=== PATIENT | male | born 1955 | race Caucasian/White ===

== ENCOUNTER 2023-08-17 18:53 | Outpatient (CLI) | payer MEDICARE, OTHER, SELFPAY | END 2023-08-17 23:59 | PROVIDERS: PCP Nurse Practitioner Family; Visit Provider Nurse Practitioner Family | DX: J02.9 Acute pharyngitis, unspecified (principal) | CPT/HCPCS: 87070 ==

== ENCOUNTER 2023-08-21 19:44 | Outpatient (CLI) | payer MEDICARE, OTHER, SELFPAY ==
[2023-08-21 16:17] LABS: Chloride 107 mmol/L (98-107)
[2023-08-21 16:18] LABS: Basophils % 0.4 % (0.1-2.0); Eosinophils # 0.1 K/mm3 (0.0-0.4); Eosinophils % 1.2 % (0.1-12.0); Hematocrit 46.9 % (42.0-52.0); Hemoglobin 15.4 g/dL (14.1-18.0); Lymphocytes # 2.4 K/mm3 (0.7-4.5); Lymphocytes % 29.7 % (10-50); Mean Corpuscular HGB Conc 32.8 g/dL (31.8-35.4); Mean Corpuscular Hemoglobin 29.5 pg (27.0-31.2); Mean Corpuscular Volume 90.2 fl (80-94); Mean Platelet Volume 8.8 fl (7.4-10.4); Monocytes # 0.6 K/mm3 (0.1-1.0); Monocytes % 7.5 % (1.7-9.3); Neutrophils # 4.9 K/mm3 (1.8-7.8); Neutrophils % 61.2 % (37.0-80.0); Platelet Count 305 K/mm3 (142-424); Potassium 4.7 mmoL/L (3.5-5.1); Sodium 140 mmol/L (136-145)
[2023-08-21 16:20] LABS: Alanine Aminotransferase 33 U/L (12-78); Anion Gap 8.7 mEq/L (5-15); Aspartate Amino Transferase 38 U/L (17-59); Blood Urea Nitrogen 14 mg/dl (9-20); Carbon Dioxide 29 mmol/L (22.0-30.0); Estimated Glomerular Filt Rate 50 ml/min (>60); GFR (African American) 61 ML/MIN (>60)
[2023-08-21 16:21] LABS: Albumin Level 4.1 g/dl (3.5-5.0); Albumin/Globulin Ratio 1.3 (1.1-1.8); Alkaline Phosphatase 67 U/L (38-126); Bilirubin,Total 0.7 mg/dl (0.2-1.3); Calcium 9.8 mg/dl (8.4-10.2); Chol/HDL Ratio 4.9 (1-3.5); Cholesterol 137 mg/dl (140-200); Globulin 3.2 g/dL (1.3-3.2); Glucose 112 mg/dl (74-100); HDL Cholesterol 28 mg/dl (40-60); Total Protein,Serum 7.3 g/dl (6.3-8.2); Triglycerides 166 mg/dl (30-150); VLDL Cholesterol 33 mg/dL (0-40)
[2023-08-21 16:38] LABS: Direct LDL Cholesterol 78.42 mg/dL (100-129)
== END 2023-08-21 23:59 ==
PROVIDERS: PCP Family Medicine; Visit Provider Family Medicine
DX: E78.5 Hyperlipidemia, unspecified (principal); I10 Essential (primary) hypertension; Z79.899 Other long term (current) drug therapy
CPT/HCPCS: 80053; 80061; 85025

== ENCOUNTER 2023-11-20 16:03 | Outpatient (CLI) | payer MEDICARE, OTHER, SELFPAY ==
[2023-11-20 16:30] LABS: Anion Gap 17.4 mEq/L (5-15); Blood Urea Nitrogen 15 mg/dl (9-20); Calcium 10.1 mg/dl (8.4-10.2); Carbon Dioxide 24 mmol/L (22.0-30.0); Chloride 104 mmol/L (98-107); Estimated Glomerular Filt Rate 60 ml/min (>60); GFR (African American) 73 ML/MIN (>60); Glucose 122 mg/dl (74-100); Potassium 4.4 mmoL/L (3.5-5.1); Sodium 141 mmol/L (136-145)
== END 2023-11-20 23:59 | disposition home or self-care (01) ==
LOC: LAB.DROPOF 16:04
PROVIDERS: PCP Family Medicine; Visit Provider Family Medicine
DX: I10 Essential (primary) hypertension (principal); Z87.891 Personal history of nicotine dependence
CPT/HCPCS: 80048

== ENCOUNTER 2024-05-05 12:27 | Outpatient (CLI) | payer MEDICARE, OTHER, SELFPAY ==
[2024-05-05 16:49] LABS: Alanine Aminotransferase 20 U/L (12-78); Albumin Level 4.2 g/dl (3.5-5.0); Alkaline Phosphatase 52 U/L (38-126); Anion Gap 17.4 mEq/L (5-15); Aspartate Amino Transferase 38 U/L (17-59); Blood Urea Nitrogen 13 mg/dl (9-20); Calcium 9.7 mg/dl (8.4-10.2); Carbon Dioxide 18 mmol/L (22.0-30.0); Chloride 104 mmol/L (98-107); Chol/HDL Ratio 6.4 (1-3.5); Cholesterol 134 mg/dl (140-200); Estimated Glomerular Filt Rate 50 ml/min (>60); GFR (African American) 61 ML/MIN (>60); Globulin 4.3 g/dL (1.3-3.2); Glucose 106 mg/dl (74-100); HDL Cholesterol 21 mg/dl (40-60); Potassium 5.4 mmoL/L (3.5-5.1); Sodium 134 mmol/L (136-145); Total Protein,Serum 8.5 g/dl (6.3-8.2); Triglycerides 210 mg/dl (30-150); VLDL Cholesterol 42 mg/dL (0-40)
[2024-05-05 17:00] LABS: Direct LDL Cholesterol 79.06 mg/dL (100-129)
== END 2024-05-05 23:59 | disposition home or self-care (01) ==
LOC: LAB.DROPOF 05-06 12:27
PROVIDERS: PCP Family Medicine; Visit Provider Family Medicine
DX: E78.5 Hyperlipidemia, unspecified (principal); I10 Essential (primary) hypertension
CPT/HCPCS: 80053; 80061

== ENCOUNTER 2024-08-17 17:25 | Emergency (ER) | payer MEDICARE, OTHER, SELFPAY ==
[2024-08-17 17:28] VITALS: BP 148/99; PULSE 86; RESP 18; TEMP 36.5; O2SAT 96; BMI 37.9
--- NOTE | 2024-08-17 17:48 | ED_ITS ---
<Statement entered by Tyler Patterson MD - 08/17/24 23:16> I was consulted by the NICK, and we discussed the complexity of the problems being addressed. I approved the treatment and management plan for this patient's care in the emergency department, thus performing a substantive portion of the medical decision making. Tyler Patterson MD Discharge Plan Disposition Patient Disposition: Home, Self-Care Condition: Good Prescriptions Prescriptions: No Action aspirin 81 mg tablet,delayed release (DR/EC) 81 mg PO DAILY oxycodone-acetaminophen 5-325 mg tablet 1 tab PO Q6H PRN (Reason: Pain) Patient Comments: TAKE 1 TABLET BY MOUTH EVERY 6 HOURS NEEDED FOR PAIN cyclobenzaprine 10 mg tablet 10 mg PO Q8H PRN (Reason: Pain) Patient Comments: TAKE 1 TABLET BY MOUTH EVERY 8 HOURS NEEDED FOR MUSCLE SPASMS amlodipine 10 mg tablet 10 mg PO DAILY Qty: 90 3RF clopidogrel 75 mg tablet 75 mg PO DAILY Qty: 90 3RF simvastatin 40 mg tablet 40 mg PO DAILY 90 Days Qty: 90 0RF losartan 100 mg tablet 100 mg PO DAILY 90 Days Qty: 90 0RF metoprolol tartrate 100 mg tablet 100 mg PO BID 90 Days Qty: 180 0RF epinephrine [EpiPen 2-Leland] 0.3 mg/0.3 mL auto-injector 0.3 mg IM ONCE PRN (Reason: anaphylaxis) 90 Days Qty: 2 0RF Rx Instructions: do not exceed 3 doses per episode omeprazole 20 mg capsule,delayed release(DR/EC) See Rx Instructions .ROUTE .COMPLEX Qty: 90 3RF Dose Instruction: TAKE 1 CAPSULE DAILY Rx Instructions: TAKE 1 CAPSULE DAILY diclofenac sodium 50 mg tablet,delayed release (DR/EC) 50 mg PO BID 14 Days Qty: 28 0RF diclofenac sodium 1 % gel 2 g topical QID PRN (Reason: Arthritis) 90 Days Qty: 100 1RF fluticasone propionate 50 mcg/actuation spray,suspension 1 spray intranasal DAILY 90 Days Qty: 48 1RF fenofibrate 54 mg tablet 54 mg PO DAILY Qty: 90 0RF lidocaine 5 % adhesive patch,medicated 1 patch transdermal DAILY 90 Days Qty: 90 0RF tramadol 50 mg tablet 100 mg PO QID Qty: 360 1RF ceftriaxone [Rocephin] 2 gram Recon Soln 2 g IV Q24H vancomycin 1.5 gram Recon Soln 1.5 g IV Q24H Referrals Follow up/Referrals: Maycol Burkett MD [Primary Care Provider] - See instructions Activity Restrictions/Add. Instructions Additional Instructions/Restrictions: Please follow-up as scheduled. Return to the ED for worsening of condition Clinical Impressions Clinical Impression: Occluded PICC line Qualifiers: Encounter type: initial encounter Qualified Code(s): T82.898A - Other specified complication of vascular prosthetic devices, implants and grafts, initial encounter Instructions Patient Instructions: DI for Hip Pain Print Language Print Language: Albanian Discharge ED Provider: Tyler Patterson General Adult HPI General Chief complaint: Recheck/Abnormal Lab/Rx Stated complaint: Pic line not working Time Seen by Provider: 08/17/24 17:29 Mode of Arrival: Ambulatory Source of Information: Patient Limitations: No Limitations Description of Symptoms (Recalled from ER Triage Doc. by RN): Patient presents via wheelchair. 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 [facility] he is on 6-8 weeks of antibiotics. [facility] he has a PICC line that was placed in [facility]. [facility] the PICC line will not flush or draw. [facility] he went to [facility] this morning and they placed an IV in his left wrist, gave him his daily antibiotic dose, and then told him to call [facility]. [facility] they called [facility] who said the patient needed to call their primary. [facility] they called the primary care provider, who told them to come to the ED. History of Present Illness HPI narrative: 69-year-old male presents to the ED for complaints of a blocked PICC line. Patient receives IV antibiotics daily for a left hip infection. PICC line was placed at [facility]. Patient followed up with PCP who advised to come to the ED. Related Data Home Medications ?Medication ?Instructions ?Recorded ?Confirmed aspirin 81 mg tablet,delayed 81 mg PO DAILY 07/24/22 08/17/24 release cyclobenzaprine 10 mg tablet 10 mg PO Q8H PRN Pain 05/05/24 08/17/24 oxycodone-acetaminophen 5 mg-325 1 tab PO Q6H PRN Pain 05/05/24 08/17/24 mg tablet ceftriaxone 2 gram intravenous 2 g IV Q24H 08/17/24 08/17/24 solution vancomycin 1.5 gram intravenous 1.5 g IV Q24H 08/17/24 08/17/24 solution Previous Rx's ?Medication ?Instructions ?Recorded amlodipine 10 mg tablet 10 mg PO DAILY #90 tabs 01/19/23 clopidogrel 75 mg tablet 75 mg PO DAILY #90 tabs 01/19/23 losartan 100 mg tablet 100 mg PO DAILY 90 days #90 tabs 07/26/23 metoprolol tartrate 100 mg tablet 100 mg PO BID 90 days #180 tabs 07/26/23 simvastatin 40 mg tablet 40 mg PO DAILY 90 days #90 tabs 07/26/23 epinephrine 0.3 mg/0.3 mL 0.3 mg (0.3 mL) IM ONCE PRN 11/13/23 injection, auto-injector (EpiPen anaphylaxis 90 days #2 ea 2-Leland) omeprazole 20 mg capsule,delayed See Rx Instructions .Route 02/06/24 release .COMPLEX #90 caps diclofenac sodium 50 mg 50 mg PO BID 14 days #28 tabs 03/10/24 tablet,delayed release diclofenac sodium 1 % topical gel 2 g topical QID PRN Arthritis 90 04/09/24 days #100 grams fluticasone propionate 50 1 spray intranasal DAILY 90 days 04/09/24 mcg/actuation nasal #48 grams spray,suspension fenofibrate 54 mg tablet 54 mg PO DAILY #90 tabs 04/28/24 lidocaine 5 % topical patch 1 patch transdermal DAILY 90 days 06/09/24 #90 ea tramadol 50 mg tablet 100 mg (2 x 50 mg) PO QID #360 tabs 06/13/24 Allergies Allergy/AdvReac Type Severity Reaction Status Date / Time No Known Allergies Allergy Verified 05/22/24 10:57 [facility] Disclaimer: The information contained in this section may have been updated after the patient was seen, as this information can be updated by other users. Medical History ROYER (obstructive sleep apnea) Chronic pain Hyperlipidemia Coronary artery disease Hypertension Surgical History H/O heart artery stent History of hip replacement History of knee replacement, total Family History Father Coronary artery disease Mother Cancer Social History Smoking Status: Never smoker smoking status stop date: 07/02/1994 alcohol intake: current alcohol intake frequency: 0-2 drinks per day current occupational status: retired Travel in the last 8 weeks: None household members: none housing: house marital status: Have you lived/traveled outside [place] in past 30 days?: No Contact w/someone who lives/traveled outside US past 30 days?: No Exposure to someone with infectious disease in past 14 days?: No Do you have a fever (greater than 100.4 F or 38 C)?: No Have you tested positive for COVID-19: No Exposed to someone with COVID-19 in past 14 days?: No Do you have a sore throat?: No Do you have a cough?: No Do you have any weakness?: No Do you have any diarrhea?: No Are you experiencing any unusual bleeding?: No Do you have any muscle aches/pain?: No Do you have any abdominal pain?: No Are you experiencing loss of taste or smell?: No Other Medical History Have you received the Pneumonia Vaccine: Yes ROS Obtained: Yes Systems reviewed as appropriate & no additional complaints except as documented Physical Exam General General appearance: alert and in no apparent distress Head Head exam: atraumatic and normocephalic Eye Eye exam: Present normal appearance and PERRL ENT ENT exam: Present normal exam Neck Neck exam: Present normal inspection Chest Chest inspection: Present normal inspection and symmetric chest wall rise; Absent tenderness Respiratory Respiratory exam: Present normal lung sounds bilaterally Cardiovascular Cardiovascular exam: Present regular rate Abdominal Exam Abdominal exam: Present soft and normal bowel sounds; Absent tenderness Extremities Exam Extremities exam: Present normal inspection and full ROM Back Exam Back exam: Present normal inspection and full ROM Neurological Exam Neurological exam: Present alert and oriented X3 Psychiatric Psychiatric exam: Present normal affect and normal mood Skin Skin exam: Present warm and dry Medical Decision Making Medical Records Screening: Per USPSTF and CDC recommendations, given the prevalence of disease in our region, it is our hospital?s policy to screen for HIV and viral Hepatitis for all patients aged 18 and over and those with ongoing risk factors. Jake Inquiry Pt receiving controlled substance: No Jake was queried for this patient: No Vital Signs: 08/17/24 17:28 08/17/24 18:29 Temperature 97.7 F 98.1 F Temperature Source Oral Pulse Rate 81 Pulse Rate [Radial] 86 Respiratory Rate 18 18 Blood Pressure 137/87 Blood Pressure [R Arm] 148/99 H Blood Pressure Mean [R Arm] 115 Blood Pressure Source [R Arm] Automatic Cuff 02 Sat by Pulse Oximetry 96 Oxygen Delivery Method Room Air Medical Decision Narrative: In summary, patient is a 69 year old male PMHx CAD, HTN, HLD, ROYER who presents to the ED for issue with his PICC line. Patient is receiving IV antibiotics through his right-sided PICC line for an infection in his left hip. He states that he is having difficulty flushing the PICC line. He tried to follow-up with his PCP who advised him to come to the ED for further management. He denies any medical complaints. Upon initial exam, patient is alert, oriented and cooperative. Patient is hemodynamically stable. Physical exam unremarkable. Denies fever, chills, headache, visual disturbances, posterior neck pain, chest pain, shortness of breath, abdominal pain, nausea, vomiting. Differential diagnosis includes infection, PICC line malfunction, among others Initial inventions include changing the hub on the PICC line, heparin flush. Patient's PICC line now flushing without difficulty, it does not pull blood. Given this, patient is appropriate to be discharged at this time. He will follow-up with PCP tomorrow. Return to the ED for any worsening of condition peer Critical Care Critical Care Time Critical Care Time: No
--- NOTE | 2024-08-17 18:24 | PC.NURSE ---
I changed the cap on pts picc line. it now flushes. i had daughter who is @ bedside verify that it flushes as normal and educated on PICC line care.
[2024-08-17 18:29] VITALS: BP 137/87; PULSE 81; RESP 18; TEMP 36.7; O2SAT 99
== END 2024-08-17 18:30 | disposition home or self-care (01) ==
PROVIDERS: Emergency Provider Emergency Medicine; PCP Family Medicine
DX: T82.898A Other specified complication of vascular prosthetic devices, implants and grafts, initial encounter (principal)
CPT/HCPCS: 99282

== ENCOUNTER 2024-08-25 01:22 | Emergency (ER) | payer MEDICARE, OTHER, SELFPAY ==
--- NOTE | 2024-08-25 01:19 | CT_ITS ---
PROCEDURE INFORMATION: Exam: CT Cervical Spine Without Contrast Exam date and time: 08/25/2024 1:51 AM Age: 69 years old Clinical indication: Injury or trauma; Fall; Blunt trauma TECHNIQUE: Imaging protocol: Computed tomography of the cervical spine without contrast. Radiation optimization: All CT scans at this facility use at least one of these dose optimization techniques: automated exposure control; mA and/or kV adjustment per patient size (includes targeted exams where dose is matched to clinical indication); or iterative reconstruction. COMPARISON: CT CERVICAL SPINE WO CON 08/25/2024 1:51 AM FINDINGS: Bones: Posterior calcification at C2-C3 with moderate central canal stenosis. No acute fracture or subluxation. Uncovertebral and facet hypertrophy with severe right foraminal stenosis at C2-C3, severe left foraminal stenosis at C3-C4, moderate bilateral foraminal stenosis at C4-C5, severe bilateral foraminal stenosis at C5-C6 and C6-C7. Lungs: Lung apices are normal. Soft tissues: Unremarkable. IMPRESSION: No acute fracture or subluxation. Multilevel degenerative changes with associated central canal and foraminal stenosis, as described above.
--- NOTE | 2024-08-25 01:19 | CT_ITS ---
PROCEDURE INFORMATION: Exam: CT Head Without Contrast Exam date and time: 08/25/2024 1:49 AM Age: 69 years old Clinical indication: Injury or trauma; Fall; Blunt trauma (contusions or hematomas); Additional info: Fall on thinners TECHNIQUE: Imaging protocol: Computed tomography of the head without contrast. Radiation optimization: All CT scans at this facility use at least one of these dose optimization techniques: automated exposure control; mA and/or kV adjustment per patient size (includes targeted exams where dose is matched to clinical indication); or iterative reconstruction. COMPARISON: CT HEAD/BRAIN WO CON 08/25/2024 1:49 AM FINDINGS: Brain: Mild cerebral and cerebellar atrophy. No hemorrhage. Symmetric hypoattenuation in the periventricular white matter. No mass or mass effect. Cerebral ventricles: Stable moderate ventriculomegaly. Paranasal sinuses: Visualized sinuses are unremarkable. No fluid levels. Mastoid air cells: Visualized mastoid air cells are well aerated. Bones: Unremarkable. No acute fracture. Soft tissues: Unremarkable. IMPRESSION: 1. No acute intracranial abnormality. 2. Age-related cortical atrophy. 3. Hypoattenuation in the periventricular white matter, suspicious for small vessel ischemic disease.
--- NOTE | 2024-08-25 01:19 | CT_ITS ---
PROCEDURE INFORMATION: Exam: CT Pelvis Without Contrast, Skeleton Exam date and time: 08/25/2024 1:56 AM Age: 69 years old Clinical indication: Injury or trauma; Fall; Blunt trauma (contusions or hematomas); Prior surgery; Surgery date: <1 month; Surgery type: Orif left hip; Additional info: Fall L hip pain, recent operations TECHNIQUE: Imaging protocol: Computed tomography of the pelvis without contrast. Exam focused on the skeleton. Radiation optimization: All CT scans at this facility use at least one of these dose optimization techniques: automated exposure control; mA and/or kV adjustment per patient size (includes targeted exams where dose is matched to clinical indication); or iterative reconstruction. COMPARISON: No relevant prior studies available. FINDINGS: Bones/joints: Mildly comminuted periprosthetic left femoral diaphysis fracture with anterolateral apex angulation. The distal femoral fragment appears hooked within the 2nd inferior most cerclage wire (series 1001, image 41). Bilateral total hip arthroplasties. The bilateral femoroacetabular joints are intact. Soft tissues: Large mixed density left posterolateral thigh soft tissue hematoma measuring approximately 7 x 12 x 26 cm (AP, transverse, cc) (series 4, images 17-120; series 1003, images 64-123). There are multiple fracture fragments in the inferior most aspect of the hematoma. IMPRESSION: 1. Mildly comminuted periprosthetic left femoral diaphysis fracture with anterolateral apex angulation. The distal femoral fragment appears hooked within the 2nd inferior most cerclage wire (series 1001, image 41). 2. Large mixed density left posterolateral thigh soft tissue hematoma. There are multiple fracture fragments in the inferior most aspect of the hematoma.
[2024-08-25 01:22] VITALS: BP 139/91; PULSE 76; RESP 18; TEMP 36.5; O2SAT 99; BMI 37.9
[2024-08-25 01:30] VITALS: BP 140/83; PULSE 74; O2SAT 98
--- NOTE | 2024-08-25 01:31 | XR_ITS ---
PROCEDURE INFORMATION: Exam: XR Chest Exam date and time: 08/25/2024 2:06 AM Age: 69 years old Clinical indication: Injury or trauma; Fall; Blunt trauma (contusions or hematomas); Additional info: Picc check TECHNIQUE: Imaging protocol: Radiologic exam of the chest. Views: 1 view. COMPARISON: CT CERVICAL SPINE WO CON 08/25/2024 1:51 AM FINDINGS: Tubes, catheters and devices: Right upper extremity PICC with the tip projecting over the superior vena cava. Lungs: Unremarkable. No consolidation. Pleural spaces: Unremarkable. No pleural effusion. No pneumothorax. Heart/Mediastinum: Unremarkable. No cardiomegaly. Bones/joints: No definite acute displaced fracture. IMPRESSION: 1. No definite acute displaced fracture. 2. Right upper extremity PICC in appropriate position.
[2024-08-25 01:37] LABS: Basophils # 0.1 K/mm3 (0-0.2); Basophils % 1.4 % (0.1-2.0); Eosinophils # 0.2 K/mm3 (0.0-0.4); Eosinophils % 2.4 % (0.1-12.0); Hematocrit 30.5 % (42.0-52.0); Hemoglobin 9.6 g/dL (14.1-18.0); Lymphocytes # 1.9 K/mm3 (0.7-4.5); Lymphocytes % 27.6 % (10-50); Mean Corpuscular HGB Conc 31.5 g/dL (31.8-35.4); Mean Corpuscular Volume 85.9 fl (80-94); Mean Platelet Volume 9.4 fl (7.4-10.4); Monocytes # 0.8 K/mm3 (0.1-1.0); Monocytes % 10.7 % (1.7-9.3); Neutrophils % 57.5 % (37.0-80.0); Platelet Count 388 K/mm3 (142-424); Red Blood Count 3.55 M/mm3 (4.60-6.20); Red Cell Distribution Width 16.5 % (11.5-17.5)
--- NOTE | 2024-08-25 01:37 | HMH.EDGENADL ---
Discharge Plan Disposition Patient Disposition: Xfer Short-Term Hosp Chief Complaint: Fall Prescriptions Prescriptions: No Action aspirin 81 mg tablet,delayed release (DR/EC) 81 mg PO DAILY oxycodone-acetaminophen 5-325 mg tablet 1 tab PO Q6H PRN (Reason: Pain) Patient Comments: TAKE 1 TABLET BY MOUTH EVERY 6 HOURS NEEDED FOR PAIN cyclobenzaprine 10 mg tablet 10 mg PO Q8H PRN (Reason: Pain) Patient Comments: TAKE 1 TABLET BY MOUTH EVERY 8 HOURS NEEDED FOR MUSCLE SPASMS amlodipine 10 mg tablet 10 mg PO DAILY Qty: 90 3RF clopidogrel 75 mg tablet 75 mg PO DAILY Qty: 90 3RF simvastatin 40 mg tablet 40 mg PO DAILY 90 Days Qty: 90 0RF losartan 100 mg tablet 100 mg PO DAILY 90 Days Qty: 90 0RF metoprolol tartrate 100 mg tablet 100 mg PO BID 90 Days Qty: 180 0RF epinephrine [EpiPen 2-Leland] 0.3 mg/0.3 mL auto-injector 0.3 mg IM ONCE PRN (Reason: anaphylaxis) 90 Days Qty: 2 0RF Rx Instructions: do not exceed 3 doses per episode omeprazole 20 mg capsule,delayed release(DR/EC) See Rx Instructions .ROUTE .COMPLEX Qty: 90 3RF Dose Instruction: TAKE 1 CAPSULE DAILY Rx Instructions: TAKE 1 CAPSULE DAILY diclofenac sodium 50 mg tablet,delayed release (DR/EC) 50 mg PO BID 14 Days Qty: 28 0RF diclofenac sodium 1 % gel 2 g topical QID PRN (Reason: Arthritis) 90 Days Qty: 100 1RF fluticasone propionate 50 mcg/actuation spray,suspension 1 spray intranasal DAILY 90 Days Qty: 48 1RF fenofibrate 54 mg tablet 54 mg PO DAILY Qty: 90 0RF lidocaine 5 % adhesive patch,medicated 1 patch transdermal DAILY 90 Days Qty: 90 0RF tramadol 50 mg tablet 100 mg PO QID Qty: 360 1RF ceftriaxone [Rocephin] 2 gram Recon Soln 2 g IV Q24H vancomycin 1.5 gram Recon Soln 1.5 g IV Q24H Referrals Follow up/Referrals: Maycol Burkett MD [Primary Care Provider] - See instructions Clinical Impressions Clinical Impression: Periprosthetic fracture around internal prosthetic left hip joint, initial encounter Stand Alone Forms Stand Alone Forms: Transfer Record - ED Print Language Print Language: Serbian Discharge ED Provider: Jake Oleary General Adult HPI General Chief complaint: Fall Stated complaint: Left hip pain Time Seen by Provider: 08/25/24 01:22 Mode of Arrival: EMS Source of Information: Patient and EMS Limitations: Physical Limitations Description of Symptoms (Recalled from ER Triage Doc. by RN): Patient reports a fall from standint. States he is now having left hip pain. States he had the left hip replaced one year ago, but the hip became infected and was removed and a spacer was put into the area. Took an oxycodone at home for the pain History of Present Illness HPI narrative: 69-year-old male presents via EMS for concerns of left hip pain after fall from standing. He states he lost his balance attempting to use his walker. Patient had left hip replacement 1 year ago but ended up with infection and since then has had multiple procedures including a surgery within the last month at [facility] with Dr. Dos Santos. Patient reports pain in the left hip since the fall. EMS also reports the left hip has started to bleed at the incision. Patient took an Oxy at home prior to arrival. He is not sure if he struck his head denies loss of consciousness. He denies neck pain, back pain, chest pain, belly pain, or other associated pain or complaints. No numbness, tingling, or weakness. He does take blood thinners. Review of systems otherwise negative. Related Data Home Medications ?Medication ?Instructions ?Recorded ?Confirmed aspirin 81 mg tablet,delayed 81 mg PO DAILY 07/24/22 08/17/24 release cyclobenzaprine 10 mg tablet 10 mg PO Q8H PRN Pain 05/05/24 08/17/24 oxycodone-acetaminophen 5 mg-325 1 tab PO Q6H PRN Pain 05/05/24 08/17/24 mg tablet ceftriaxone 2 gram intravenous 2 g IV Q24H 08/17/24 08/17/24 solution vancomycin 1.5 gram intravenous 1.5 g IV Q24H 08/17/24 08/17/24 solution Previous Rx's ?Medication ?Instructions ?Recorded amlodipine 10 mg tablet 10 mg PO DAILY #90 tabs 01/19/23 clopidogrel 75 mg tablet 75 mg PO DAILY #90 tabs 01/19/23 losartan 100 mg tablet 100 mg PO DAILY 90 days #90 tabs 07/26/23 metoprolol tartrate 100 mg tablet 100 mg PO BID 90 days #180 tabs 07/26/23 simvastatin 40 mg tablet 40 mg PO DAILY 90 days #90 tabs 07/26/23 epinephrine 0.3 mg/0.3 mL 0.3 mg (0.3 mL) IM ONCE PRN 11/13/23 injection, auto-injector (EpiPen anaphylaxis 90 days #2 ea 2-Leland) omeprazole 20 mg capsule,delayed See Rx Instructions .Route 02/06/24 release .COMPLEX #90 caps diclofenac sodium 50 mg 50 mg PO BID 14 days #28 tabs 03/10/24 tablet,delayed release diclofenac sodium 1 % topical gel 2 g topical QID PRN Arthritis 90 04/09/24 days #100 grams fluticasone propionate 50 1 spray intranasal DAILY 90 days 04/09/24 mcg/actuation nasal #48 grams spray,suspension fenofibrate 54 mg tablet 54 mg PO DAILY #90 tabs 04/28/24 lidocaine 5 % topical patch 1 patch transdermal DAILY 90 days 06/09/24 #90 ea tramadol 50 mg tablet 100 mg (2 x 50 mg) PO QID #360 tabs 06/13/24 Allergies Allergy/AdvReac Type Severity Reaction Status Date / Time No Known Allergies Allergy Verified 05/22/24 10:57 [facility] Disclaimer: The information contained in this section may have been updated after the patient was seen, as this information can be updated by other users. Medical History ROYER (obstructive sleep apnea) Chronic pain Hyperlipidemia Coronary artery disease Hypertension Surgical History H/O heart artery stent History of hip replacement History of knee replacement, total Family History Father Coronary artery disease Mother Cancer Social History Smoking Status: Never smoker smoking status stop date: 07/02/1994 alcohol intake: current alcohol intake frequency: 0-2 drinks per day current occupational status: retired Travel in the last 8 weeks: None household members: none housing: house marital status: Have you lived/traveled outside US in past 30 days?: No Contact w/someone who lives/traveled outside US past 30 days?: No Exposure to someone with infectious disease in past 14 days?: No Do you have a fever (greater than 100.4 F or 38 C)?: No Have you tested positive for COVID-19: No Exposed to someone with COVID-19 in past 14 days?: No Do you have a sore throat?: No Do you have a cough?: No Do you have any weakness?: No Do you have any diarrhea?: No Are you experiencing any unusual bleeding?: No Do you have any muscle aches/pain?: Yes Do you have any abdominal pain?: No Are you experiencing loss of taste or smell?: No Other Medical History Have you received the Pneumonia Vaccine: Yes ROS Obtained: Yes Systems reviewed as appropriate & no additional complaints except as documented per HPI Physical Exam General General appearance: alert, in no apparent distress and obese Head Head exam: atraumatic and normocephalic Eye Eye exam: Present PERRL and EOMI ENT ENT exam: Present mucous membranes moist Neck Neck exam: Present normal inspection and full ROM Chest Chest inspection: Present symmetric chest wall rise; Absent tenderness Respiratory Respiratory exam: Present normal lung sounds bilaterally; Absent respiratory distress, wheezes or stridor Cardiovascular Cardiovascular exam: Present regular rate and normal rhythm Abdominal Exam Abdominal exam: Present soft; Absent distention or tenderness Extremities Exam Extremities exam: Present tenderness (Tenderness to palpation of the left hip, overlying incision appears clean, there is a very small area in the middle of the incision that is oozing serosanguineous fluid, no obvious dehiscence, no evidence of infection), normal capillary refill and other (Palpable DP and PT pulses, neurovascularly intact; no obvious deformity); Absent full ROM (Significantly limited range of motion of the left hip both passive and active), edema, joint swelling or calf tenderness Neurological Exam Neurological exam: Present alert and oriented X3; Absent motor sensory deficit Psychiatric Psychiatric exam: Present normal affect and normal mood Skin Skin exam: Present warm and dry Medical Decision Making Medical Records Medical records reviewed: Yes I reviewed the patient's medical records. Screening: Per USPSTF and CDC recommendations, given the prevalence of disease in our region, it is our hospital?s policy to screen for HIV and viral Hepatitis for all patients aged 18 and over and those with ongoing risk factors. MR Comment: On 08/17/2024 patient was in our ER for an occluded PICC line and they had to replace the hub and then the line would appropriately flush. He has since been receiving IV antibiotics. He was seen in May 2020 for by his PCP Dr. Burkett with chronic pain of the left hip since his surgery. Jake Inquiry Pt receiving controlled substance: No Vital Signs: 08/25/24 01:22 08/25/24 01:30 08/25/24 02:04 Temperature 97.7 F Temperature Source Oral Pulse Rate 74 75 Pulse Rate [Right Radial] 76 Respiratory Rate 18 Blood Pressure 140/83 152/65 H Blood Pressure [Right Arm] 139/91 H Blood Pressure Mean [Right Arm] 107 Blood Pressure Source [Right Arm] Automatic Cuff Blood Pressure Position [Right Arm] Supine 02 Sat by Pulse Oximetry 99 98 96 Oxygen Delivery Method Room Air Lab Data Lab Results 08/25/24 01:30: WBC 7.0, RBC 3.55 L, Hgb 9.6 L, Hct 30.5 L, MCV 85.9, MCH 27.0, MCHC 31.5 L, RDW 16.5, Plt Count 388, MPV 9.4, Neut % (Auto) 57.5, Lymph % (Auto) 27.6, Guthrie % (Auto) 10.7 H, Eos % (Auto) 2.4, Baso % (Auto) 1.4, Neut # (Auto) 4.0, Lymph # (Auto) 1.9, Guthrie # (Auto) 0.8, Eos # (Auto) 0.2, Baso # (Auto) 0.1, Sodium 135 L, Potassium 4.5, Chloride 107, Carbon Dioxide 22, Anion Gap 10.5, BUN 17, Creatinine 1.30 H, Estimated Creat Clear 80, Estimated GFR 55 L, Est GFR ( Amer) 66, Glucose 107 H, Calcium 9.1, Total Bilirubin 0.4, AST 35, ALT 21, Alkaline Phosphatase 54, C-Reactive Protein 9.1 H, Total Protein 6.8, Albumin 3.8, Globulin 3.0, Albumin/Globulin Ratio 1.3 08/25/24 01:30 08/25/24 01:30 Orders (Tests/Meds): ED MEDICATIONS Discontinued Medications Generic Name Dose Route Start Last Admin Trade Name Freq PRN Reason Stop Dose Admin Morphine Sulfate 4 mg 08/25/24 01:32 08/25/24 02:24 Morphine 4mg/Ml Syringe IV 08/25/24 01:33 4 mg ONCE ONE Administration Ondansetron HCl 4 mg 08/25/24 01:32 08/25/24 02:24 Ondansetron 4mg/2ml Vial IV 08/25/24 01:33 4 mg ONCE ONE Administration ORDERS Category Date Time Status CT bony pelvis Stat Cat Scan 08/25/24 01:[address] cervical spine wo con Stat Cat Scan 08/25/24 01:[address] head/brain wo con Stat Cat Scan 08/25/24 01:19 Completed CXR --portable [XR chest portable] Stat Exams 08/25/24 01:31 Completed CBC w/Auto Diff [Complete Blood Count Auto Diff] Stat Lab 08/25/24 01:30 Results CMP [Comprehensive Metabolic Panel] Stat Lab 08/25/24 01:30 Completed CRP [C-Reactive Protein] Stat Lab 08/25/24 01:30 Completed ESR [Erythrocyte Sedimentation Rate] Stat Lab 08/25/24 01:30 Results Medical Decision Narrative: In summary, this 69-year-old male with comorbidities as described in the HPI including complications since left hip replacement not at goal therapy presents to the emergency department today with left hip pain after ground level fall. On initial evaluation patient is hemodynamically stable, afebrile, GCS 15, no tenderness to palpation of the chest, abdomen, spine, patient does have tenderness of the left hip with shortening of the left lower extremity, small serosanguineous drainage from the left hip incision which otherwise appears intact and no evidence of infection. Neurovascularly intact. Differential diagnosis includes but is not limited to periprosthetic fracture, dislocation, hematoma, since he is on thinners also considered possibility of intracranial bleed, with his age also cannot rule out C-spine injury. Based on these concerns, I ordered CT imaging, basic labs, x-rays. Also ordered x-ray of the chest to assess PICC placement Patient received morphine, Zofran for treatment. Labs personally reviewed demonstrate no leukocytosis, patient has anemia with hemoglobin 9.6, platelets normal, CMP with kidney function at baseline compared to previous labs which I reviewed, CRP slightly elevated at 9.1. CT imaging was performed first. This included CT of the head, C-spine, bony pelvis. I personally interpreted all CT imaging and do not appreciate acute intracranial or cervical spine injury, however patient does have periprosthetic left hip fracture with significant angulation. Due to significant pain with manipulation, plain films are not going to be performed at this time of the left hip. Chest x-ray personally interpreted demonstrates PICC line in the SVC, no acute intrathoracic injury appreciated. See radiology reads for final interpretations. Based on my personal interpretation of the CT imaging, immediately reach out to [facility] for transfer for periprosthetic left hip fracture since Dr. Dos Santos works at their facility. I spoke with Dr. Jett with Ortho who agrees the patient should be transferred to [place] for further evaluation and management. I then spoke with nurse practitioner Damaris with the hospitalist team who accepted the patient for admission. Patient appropriate for transfer. His pain is controlled. He continues to be neurovascularly intact. He was transferred via ambulance in stable condition. Critical Care Critical Care Time Critical Care Time: No
--- NOTE | 2024-08-25 01:42 | PC.NURSE ---
Pt to CT scan via stretcher
[2024-08-25 01:51] LABS: Alanine Aminotransferase 21 U/L (12-78); Albumin Level 3.8 g/dl (3.5-5.0); Albumin/Globulin Ratio 1.3 (1.1-1.8); Alkaline Phosphatase 54 U/L (38-126); Aspartate Amino Transferase 35 U/L (17-59); Bilirubin,Total 0.4 mg/dl (0.2-1.3); Blood Urea Nitrogen 17 mg/dl (9-20); Calcium 9.1 mg/dl (8.4-10.2); Carbon Dioxide 22 mmol/L (22.0-30.0); Chloride 107 mmol/L (98-107); Creatinine Clearance Estimated 80 mL/min (50-200); Estimated Glomerular Filt Rate 55 ml/min (>60); GFR (African American) 66 ML/MIN (>60); Glucose 107 mg/dl (74-100); Sodium 135 mmol/L (136-145); Total Protein,Serum 6.8 g/dl (6.3-8.2)
[2024-08-25 01:56] LABS: C-Reactive Protein 9.1 mg/L (0-4)
[2024-08-25 02:02] LABS: Anion Gap 10.5 mEq/L (5-15); Potassium 4.5 mmoL/L (3.5-5.1)
[2024-08-25 02:04] VITALS: BP 152/65; PULSE 75; O2SAT 96
--- NOTE | 2024-08-25 02:10 | PC.NURSE ---
Called [facility] for a transfer to [place]
[2024-08-25] MEDS: MORPHINE 4MG/ML SYRINGE 4 MG IV (02:24)
[2024-08-25] MEDS: ONDANSETRON 4MG/2ML VIAL 4 MG IV (02:24)
--- NOTE | 2024-08-25 02:29 | PC.NURSE ---
Rounding done on patient
[2024-08-25 02:47] LABS: Erythrocyte Sedimentation Rate 83 mm/hr (0-20)
--- NOTE | 2024-08-25 02:53 | PC.NURSE ---
Report given to Rosy at [facility]. Patient is going to ICU room 5 as a med/surg overflow.
[2024-08-25 03:07] VITALS: BP 140/79; PULSE 72; RESP 16; TEMP 36.5; O2SAT 96
== END 2024-08-25 03:08 | disposition short-term general hospital (02) ==
PROVIDERS: Emergency Provider Emergency Medicine; PCP Family Medicine
DX: M25.552 Pain in left hip (principal); M97.02XA Periprosthetic fracture around internal prosthetic left hip joint, initial encounter; W01.0XXA Fall on same level from slipping, tripping and stumbling without subsequent striking against object, initial encounter; Y93.89 Activity, other specified
CPT/HCPCS: 70450; 71045; 72125; 72192; 80053; 85025; 85651; 86140; 96374; 96375; 99285; J2270; J2405

== ENCOUNTER 2025-02-25 13:26 | Outpatient (CLI) | payer MEDICARE, OTHER, SELFPAY ==
--- OUTSIDE RECORDS SUMMARY | 2025-02-25 13:28 | XMS_ITS | Continuity of Care Document ---
Author Name [facility] Organization [facility] Care Team Providers Care Credit Resolution Representative Name Role Phone [facility] Unavailable Unavailable Problems Combined list of problems from [facility] and [facility] facilities. It does not include entries that were removed or entered in error. Problem Status Onset Date Problem Type Date of Resolution Comments Source Benign hypertension Active Condition [facility] Chronic osteoarthritis Active Condition [facility] Gastroesophageal reflux disease Active Condition [facility] Hip pain Active Condition [facility] History of noncompliance with medication regimen Active Condition Jul 27 018 Entered By: RIYA FRANCO Comment: Multisource tramadol [facility] Ischemic heart disease Active Condition [facility] Obstructive sleep apnea syndrome Active Condition [facility] Diagnosis: ICD-10-CM H25.813 Combined forms of age-related cataract, bilateral Active Diagnosis [facility] Diagnosis: ICD-10-CM H52.4 Presbyopia Active Diagnosis [facility] Medications Combined list of outpatient medications from [facility] and [facility] facilities.Medications provided include 1) outpatient medications from the last 15 months, and 2) patient-reported medications. Medication Details Route Status Patient Instructions Prescription Expires Prescription Number Last Dispense Date Ordering Provider Order Date Order Qty Source ASPIRIN 81MG TAB,EC TAKE ONE TABLET BY MOUTH DAILY ORAL ACTIVE WILBUR LIND 2017 [place] [facility] CARBOXYMETH YLCELLULOSE NA 1% GEL,OPH 0.4ML APPLY 1 DROP TO BOTH EYES NEEDED FOR DRY EYES OPHTHA LMIC ACTIVE 09/28/2024 [id number] Curt OKEEFE M 2023 60 [place] [facility] CETIRIZINE HCL 10MG TAB TAKE ONE TABLET BY MOUTH DAILY ORAL ACTIVE WILBUR LIND 2017 [place] [facility] CLOPIDOGREL BISULFATE 75MG TAB TAKE ONE TABLET BY MOUTH DAILY ORAL ACTIVE WILBUR LIND 2017 [place] [facility] CYANOCOBALA MIN 1000MCG TAB TAKE ONE TABLET BY MOUTH DAILY ORAL ACTIVE WILBUR LIND 2017 [place] [facility] EPI-PEN 0.3MG/0.3ML INJECTOR INJECT EPI-PEN (0.3MG/1 SYRINGE) DOSE INTO THE MUSCLE DIRECTED ONCE PRN INTRAM USCULA R ACTIVE WILBUR LIND 2017 [place] [facility] HYDROCHLORO THIAZIDE 25MG TAB TAKE ONE-HALF TABLET BY MOUTH DAILY ORAL ACTIVE WILBUR LIND 2017 [place] [facility] LISINOPRIL 40MG TAB TAKE ONE-HALF TABLET BY MOUTH DAILY ORAL WILBUR AYOUB 2017 [place] [facility] METOPROLOL SUCCINATE 50MG TAB,SA TAKE ONE-HALF TABLET BY MOUTH DAILY ORAL WILBUR AYOUB 2017 [place] [facility] NIACIN (SLO-NIACIN ) 750MG TAB,SA TAKE TWO TABLETS BY MOUTH AT BEDTIME WILBUR LIAO 2017 [place] [facility] OMEPRAZOLE 20MG CAP,EC TAKE 1 CAPSULE BY MOUTH EVERY DAY 30 MINUTES BEFORE A MEAL WILBUR LIAO 2017 [place] [facility] POLYVINYL ALCOHOL 1.4%/POVIDO NE (PF) SOLN,OPH PUT 1 DROP IN EYE(S) FOUR TIMES A DAY FOR DRY EYES OPHTHA LMIC 11/02/2023 [id number] 4 [facility] DOVE 2022 50 [place] [facility] PREDNISOLON E ACETATE (PREDNISOLO NE ACETATE), 1%, DROPS SUSP, OPHTHALMIC, [facility], 5 ml DROP BTL Canjose me d [id number] : 06/13/ 2024 0 Pharmac y Data Transac tion Service Facilit y SIMVASTATIN 80MG TAB TAKE ONE-HALF TABLET BY MOUTH AT BEDTIME ORAL ACTIVE WILBUR LIND 2017 [place] [facility] TRAMADOL HCL 50MG TAB TAKE TWO TABLETS BY MOUTH DAILY ORAL ACTIVE WILBUR LIND 2017 [place] [facility] Immunizations Combined list of available immunizations from the Department of Defense and Veterans Affairs facilities. Immunization Series Date Given Administered By Site Reaction Lot Number CVX Code Drug Service Center Representative Status Comments Source INFLUENZA, INJECTABLE, QUADRIVALENT, PRESERVATIVE FREE 2020 150 complet ed [place] COVID-19 (PFIZER), MRNA, LNP-S, PF, 30 MCG/0.3 ML DOSE 3 2020 208 complet ed PFR; [id number]; 2 [place] [facility] COVID-19 (PFIZER), MRNA, LNP-S, PF, 30 MCG/0.3 ML DOSE 2 2020 208 complet ed PFR; [id number]; 1 [place] COVID-19 (PFIZER), MRNA, LNP-S, PF, 30 MCG/0.3 ML DOSE 1 2020 208 complet ed PFR; [id number]; 1 [place] Hep A, adult 2018 TY, () Not Given Hep A, adult [facility] Hep A, adult 2017 TY, () Not Given Hep A, adult DoD INFLUENZA A & B (HISTORICAL) 2016 88 complet ed [place] [facility] INFLUENZA A & B (HISTORICAL) 2015 88 complet ed [place] [facility] ZOSTER LIVE 2015 121 complet ed verbal report [place] [facility] zoster live 2015 PEPE, () Not Given zoster live [facility] TDAP (HISTORICAL) 2015 115 complet ed [place] [facility] INFLUENZA A & B (HISTORICAL) 2014 88 complet ed [place] [facility] Influenza, seasonal, injectable 2013 FAN AGUIAR () Not Given Influenza , seasonal, injectabl e DoD PNEUMOCOCCAL POLYSACCHARID E [id number] 2013 33 complet ed verbal report [place] [facility] Encounters Combined list of: 1) Encounters from Department of Veterans Affairs facilities going backup to the last 18 months, not all [place] inpatient encounters are included; 2) Encounters from the Department of [facility] facilities going backup to 280 months. Location Location Details Encounter Type Encounter Number Reason For Visit Attending Provider ADM Date DC Date Status Disposition Source [facility] INTRM OPH EXAM EST PATIENT [id number] Diagnos is: ICD-10- CM H52.4 NEO [place] [facility] INTRM OPH EXAM EST PATIENT [id number] Diagnos is: ICD-10- CM H25.813 Combine d forms of age-rel ated catarac t, bilater al FELIPE CASSIDY L 09/27 [place] [facility] Outpatient Encounter [id number] 07/07 [place] [facility] Outpatient Encounter [id number] 07/07 [place] [facility] Outpatient Encounter [id number] 07/16 [place] [facility] Outpatient Encounter [id number] 07/16 [place] [facility] Social History Combined list of available smoking, tobacco, and other social history from Department of Defense and Veterans Affairs facilities. Social History Type Response Date Comment Sourc e Tobacco smoking status NHIS V9 QUIT TOBACCO >7 YEARS AGO 12/06/2017 [facility] History of tobacco use V9 QUIT TOBACCO >12 MO and <7 YRS AGO 02/23/2016 [facility] This section is an empty social history section. [employer]
--- OUTSIDE RECORDS SUMMARY | 2025-02-25 13:29 | XMS_ITS | Encounter Summary ---
Author Organization [employer] ([place], [place], [place], [place]) Address [address] [place] [address] Care Team Providers Care Literacy Specialist Name Role Phone [facility] Find-A-Doc Primary Care Provider Encounter Details Date Type Department Care Team (Late st Contact Info) Description 11/07/2018 Transcribed Document [facility] Family Medicine [address] [place] [address] ProviderNicolette MD [address], [place] [id number] Social History Tobacco Use Types Packs/Day Years Used Date Smoking Tobacco: Never Assessed Sex and Gender Information Value Date Recorded Sex Assigned at Male 11/29/2023 7:55 AM CDT Legal Sex Male 6:33 PM CDT Gender Identity Male 11/29/2023 7:55 AM CDT Sexual Orientation Not on file documented as of this encounter Miscellaneous Notes * Cerner Conversion Note - Nicolette Venegas MD - 11/07/2018 8:32 PM CDT [facility] [place] [id number] AWA CLAROS BAUTISTA :1955 Visit Time:11/07/2018 Your Visit Summary Your Care Team Admitting Physician - GUERDA JOHNSON MD-CAR Attending Physician - GUERDA JOHNSON MD-CAR Primary Care Physician - DEIRDRE CANTU (REF), -MED Referring Physician - DEIRDRE CANTU (REF), -MED Your Diagnosis Abnormal result of other cardiovascular function study, Abnormal result of other cardiovascular function study Discharge Vitals Heart Rate (Monitored) 96 Blood Pressure 142/82 What to do next Instructions From Your Care Team Diet after Discharge: Resume usual diet as tolerated, _, _ Fluid Restriction after Discharge: _ Activity after Discharge: _, Rest and relax today, No strenuous activity for 7 days. Lifting Restrictions: _ Weight Bearing: _ Bedrest: _ Driving after Discharge: Do not drive for 24 hours May Return to Work/School: Showering/Bathing: May shower tomorrow, No tub bathing, soaking or swimming Notify Provider of: Wound/Incision Care after Discharge: Keep operative site/wound site clean and dry, _ Medical Equipment for Home Use: Home Health Services: Community Services: follow post radial cath instructions. Follow-Up Appointments Follow Up with MARION WASHBURN MD-INT When Within 2 to 4 weeks Comments Call for follow up appointment Where: [address] [place] [address] [place] [address]- Medications What How Much When Instructions Next Dose amLODIPine 5 Milligram(s) Oral Every Day increase to 10mg a day 11/08 aspirin 81 Milligram(s) Oral At Bedtime 11/07 clopidogrel (Plavix) 75 Milligram(s) Oral Every Day 11/08 diclofenac (Voltaren) 50 Milligram(s) Oral Twice a Day With Meals 11/07 lisinopril (Prinivil) 20 Milligram(s) Oral Two Times A Day 11/07 metoprolol (metoprolol tartrate) 25 Milligram(s) Oral Two Times A Day 11/07 niacin 1,500 Milligram(s) Oral Every Evening 11/07 omeprazole 20 Milligram(s) Oral Every Day 11/08 simvastatin (Zocor) 40 Milligram(s) Oral At Bedtime 11/08 traMADol (Ultram) 100 Milligram(s) Oral Two Times A Day 11/07 Take your medications faithfully. Do NOT skip medication. Do NOT stop taking medications without the direction of a physician. Carry a list of your medications with you at all times, and take this medication list with you to your first follow up visit. Report any side effects. Avoid herbal remedies unless discussed with your physician. As part of your treatment plan, your physician may have prescribed a limited course of a controlled substance. This medication may be given to help people with moderate or severe pain or for other medical conditions, but there are risks involved with treatment. Common side effects may include nausea, constipation, drowsiness, sweating, itching, dry mouth, and rash. More serious side effects may include cognitive and motor impairment, like problems with thinking, concentrating, alertness, and movement (e.g. slowed reflexes), and driving and operating heavy machinery can be dangerous. It is important for you to talk to your physician if you have these side effects or questions. These controlled substances can produce physical dependence and be habit-forming if taken for an extended period of time, which means that the body has gotten used to them and may experience withdrawal symptoms if they are abruptly stopped. Withdrawal symptoms can include runny nose, sweating, goose bumps, diarrhea, abdominal cramping, rapid heartbeat, difficulty sleeping, and nervousness. Please dispose of unused and medications per your retail pharmacy guidance. Allergies No Known Medication Allergies Immunizations This Visit No Immunizations Found Education Materials Coronary Angiogram A coronary angiogram is an X-ray procedure that is used to examine the arteries in the heart. In this procedure, a dye (contrast dye) is injected through a long, thin tube (catheter). The catheter is inserted through the groin, wrist, or arm. The dye is injected into each artery, then X-rays are taken to show if there is a blockage in the arteries of the heart. This procedure can also show if you have valve disease or a disease of the aorta, and it can be used to check the overall function of your heart muscle. You may have a coronary angiogram if: ??? You are having chest pain, or other symptoms of angina, and you are at risk for heart disease. ??? You have an abnormal electrocardiogram (ECG) or stress test. ??? You have chest pain and heart failure. ??? You are having irregular heart rhythms. ??? You and your health care provider determine that the benefits of the test information outweigh the risks of the procedure. Let your health care provider know about: ??? Any allergies you have, including allergies to contrast dye. ??? All medicines you are taking, including vitamins, herbs, eye drops, creams, and ciut-jub-pneftww medicines. ??? Any problems you or family members have had with anesthetic medicines. ??? Any blood disorders you have. ??? Any surgeries you have had. ??? History of kidney problems or kidney failure. ??? Any medical conditions you have. ??? Whether you are or may be . What are the risks? Generally, this is a safe procedure. However, problems may occur, including: ??? Infection. ??? Allergic reaction to medicines or dyes that are used. ??? Bleeding from the access site or other locations. ??? Kidney injury, especially in people with impaired kidney function. ??? Stroke (rare). ??? Heart attack (rare). ??? Damage to other structures or organs. What happens before the procedure? Staying hydratedFollow instructions from your health care provider about hydration, which may include: ??? Up to 2 hours before the procedure ??? you may continue to drink clear liquids, such as water, clear fruit juice, black coffee, and plain tea. Eating and drinking restrictionsFollow instructions from your health care provider about eating and drinking, which may include: ??? 8 hours before the procedure ??? stop eating heavy meals or foods such as meat, fried foods, or fatty foods. ??? 6 hours before the procedure ??? stop eating light meals or foods, such as toast or cereal. ??? 2 hours before the procedure ??? stop drinking clear liquids. General instructions ??? Ask your health care provider about: ? Changing or stopping your regular medicines. This is especially important if you are taking diabetes medicines or blood thinners. ? Taking medicines such as ibuprofen. These medicines can thin your blood. Do not take these medicines before your procedure if your health care provider instructs you not to, though aspirin may be recommended prior to coronary angiograms. ??? Plan to have someone take you home from the hospital or clinic. ??? You may need to have blood tests or X-rays done. What happens during the procedure? An IV tube will be inserted into one of your veins. ??? You will be given one or more of the following: ? A medicine to help you relax (sedative). ? A medicine to numb the area where the catheter will be inserted into an artery (local anesthetic). ??? To reduce your risk of infection: ? Your health care team will wash or sanitize their hands. ? Your skin will be washed with soap. ? Hair may be removed from the area where the catheter will be inserted. ??? You will be connected to a continuous ECG monitor. ??? The catheter will be inserted into an artery. The location may be in your groin, in your wrist, or in the fold of your arm (near your elbow). ??? A type of X-ray (fluoroscopy) will be used to help guide the catheter to the opening of the blood vessel that is being examined. ??? A dye will be injected into the catheter, and X-rays will be taken. The dye will help to show where any narrowing or blockages are located in the heart arteries. ??? Tell your health care provider if you have any chest pain or trouble breathing during the procedure. ??? If blockages are found, your health care provider may perform another procedure, such as inserting a coronary stent. The procedure may vary among health care providers and hospitals. What happens after the procedure? After the procedure, you will need to keep the area still for a few hours, or for as long as told by your health care provider. If the procedure is done through the groin, you will be instructed to not bend and not cross your legs. ??? The insertion site will be checked frequently. ??? The pulse in your foot or wrist will be checked frequently. ??? You may have additional blood tests, X-rays, and a test that records the electrical activity of your heart (ECG). ??? Do notdrive for 24 hours if you were given a sedative. Summary ??? A coronary angiogram is an X-ray procedure that is used to look into the arteries in the heart. ??? During the procedure, a dye (contrast dye) is injected through a long, thin tube (catheter). The catheter is inserted through the groin, wrist, or arm. ??? Tell your health care provider about any allergies you have, including allergies to contrast dye. ??? After the procedure, you will need to keep the area still for a few hours, or for as long as told by your health care provider. This information is not intended to replace advice given to you by your health care provider. Make sure you discuss any questions you have with your health care provider. Document Released: 12/23/2003 Document Revised: 03/30/2017 Document Reviewed: 03/30/2017 [employer] Interactive Patient Education ?? 2017 [employer] Radial Site Care Introduction Refer to this sheet in the next few weeks. These instructions provide you with information about caring for yourself after your procedure. Your health care provider may also give you more specific instructions. Your treatment has been planned according to current medical practices, but problems sometimes occur. Call your health care provider if you have any problems or questions after your procedure. What can I expect after the procedure? After your procedure, it is typical to have the following: ??? Bruising at the radial site that usually fades within 1???2 weeks. ??? Blood collecting in the tissue (hematoma) that may be painful to the touch. It should usually decrease in size and tenderness within 1???2 weeks. Follow these instructions at home: ??? Take medicines only as directed by your health care provider. ??? You may shower 24???48 hours after the procedure or as directed by your health care provider. Remove the bandage (dressing) and gently wash the site with plain soap and water. Pat the area dry with a clean towel. Do not rub the site, because this may cause bleeding. ??? Do nottake baths, swim, or use a hot tub until your health care provider approves. ??? Check your insertion site every day for redness, swelling, or drainage. ??? Do notapply powder or lotion to the site. ??? Do notflex or bend the affected arm for 24 hours or as directed by your health care provider. ??? Do notpush or pull heavy objects with the affected arm for 24 hours or as directed by your health care provider. ??? Do notlift over 10 lb (4.5 kg) for 5 days after your procedure or as directed by your health care provider. ??? Ask your health care provider when it is okay to: ? Return to work or school. ? Resume usual physical activities or sports. ? Resume sexual activity. ??? Do notdrive home if you are discharged the same day as the procedure. Have someone else drive you. ??? You may drive 24 hours after the procedure unless otherwise instructed by your health care provider. ??? Do notoperate machinery or power tools for 24 hours after the procedure. ??? If your procedure was done as an outpatient procedure, which means that you went home the same day as your procedure, a responsible adult should be with you for the first 24 hours after you arrive home. ??? Keep all follow-up visits as directed by your health care provider. This is important. Contact a health care provider if: ??? You have a fever. ??? You have chills. ??? You have increased bleeding from the radial site. Hold pressure on the site. Get help right away if: ??? You have unusual pain at the radial site. ??? You have redness, warmth, or swelling at the radial site. ??? You have drainage (other than a small amount of blood on the dressing) from the radial site. ??? The radial site is bleeding, and the bleeding does not stop after 30 minutes of holding steady pressure on the site. ??? Your arm or hand becomes pale, cool, tingly, or numb. This information is not intended to replace advice given to you by your health care provider. Make sure you discuss any questions you have with your health care provider. Document Released: 07/21/2011 Document Revised: 11/23/2016 Document Reviewed: 01/04/2015 ?? 2017 [employer] Moderate Conscious Sedation, Adult, Care After These instructions provide you with information about caring for yourself after your procedure. Your health care provider may also give you more specific instructions. Your treatment has been planned according to current medical practices, but problems sometimes occur. Call your health care provider if you have any problems or questions after your procedure. What can I expect after the procedure? After your procedure, it is common: ??? To feel sleepy for several hours. ??? To feel clumsy and have poor balance for several hours. ??? To have poor judgment for several hours. ??? To vomit if you eat too soon. Follow these instructions at home: For at least 24 hours after the procedure: ??? Do not: ? Participate in activities where you could fall or become injured. ? Drive. ? Use heavy machinery. ? Drink alcohol. ? Take sleeping pills or medicines that cause drowsiness. ? Make important decisions or sign legal documents. ? Take care of children on your own. ??? Rest. Eating and drinking ??? Follow the diet recommended by your health care provider. ??? If you vomit: ? Drink water, juice, or soup when you can drink without vomiting. ? Make sure you have little or no nausea before eating solid foods. General instructions ??? Have a responsible adult stay with you until you are awake and alert. ??? Take xokb-hfb-pilkewe and prescription medicines only as told by your health care provider. ??? If you smoke, do not smoke without supervision. ??? Keep all follow-up visits as told by your health care provider. This is important. Contact a health care provider if: ??? You keep feeling nauseous or you keep vomiting. ??? You feel light-headed. ??? You develop a rash. ??? You have a fever. Get help right away if: ??? You have trouble breathing. This information is not intended to replace advice given to you by your health care provider. Make sure you discuss any questions you have with your health care provider. Document Released: 04/08/2014 Document Revised: 11/20/2016 Document Reviewed: 10/07/2016 [employer] Interactive Patient Education ?? 2017 [employer] Emergency Awareness and Preventative Care STROKE is an EMERGENCY Every Minute Counts Act FAST and Check for these signs: FACE Does the face look uneven? ARM Does one arm drift down? SPEECH Does their speech sound strange? TIME Call at any sign of stroke Stroke Risk Factors Atrial Fibrillation (irregular heartbeat) Diabetes Family history of stroke Heart Disease Heavy alcohol use High Blood Pressure High Cholesterol Physical inactivity and obesity Smoking Cigarette Smoking The facts are clear, cigarette smoking will shorten your life. Smoking can cause many illnesses along the way. As a healthcare provider, we recommend that you stop smoking. Assistance with quitting is available by contacting 6-115-VYQC-NOW. This is a free resource providing counseling, support, and referral. Or you may contact your personal physician. National Suicide Prevention Lifeline: The National Suicide Prevention Lifeline is a national network of local crisis centers that provides free and confidential emotional support to people in suicidal crisis or emotional distress 24 hours a day, 7 days a week. Don't Wait! Stop a Heart Attack Before it Starts What is a heart attack? A heart attack is damage or to a part of the heart from severely decreased or lack of blood flow to the heart. Over time, arteries can become narrow from the buildup of fat and cholesterol, which is called plaque. The plaque can rupture causing a blood clot to form. When the blood clot forms, the artery can become severely narrowed or completely blocked, causing a heart attack. Heart attack is the leading cause of in the [place]. 85% of muscle damage occurs within the first 2 hours. Delay in the recognition of heart attack symptoms increases the chances of . Know the early symptoms of a heart attack: Nausea Feeling of fullness in chest Jaw Pain Pain that travels down one or both arms Fatigue/being tired Anxiety Back Pain Chest pressure, squeezing, or discomfort Shortness of breath Sweating, or a cold sweat Feeling of impending doom There are unusual signs of a heart attack, too! Women, the elderly, and diabetics may present with atypical symptoms: Fainting/dizziness Weakness Confusion Risk Factors for a Heart Attack Some heart disease risk factors, such as age and family history, cannot be changed. Others, like smoking and lack of exercise, can be changed. Smoking High Cholesterol High Blood Pressure Family History Obesity Age Gender (Males are at higher risk) Lack of Exercise Diabetes Diet Stress Excessive Alcohol Intake If you or someone you know is experiencing the signs and symptoms of a heart attack, DON???T DELAY. Call immediately and seek help. If someone collapses, perform CPR! Do not attempt to drive if you are having symptoms of heart attack. Hands-Only CPR Why Hands-Only CPR? Hands-Only CPR has been shown to be as effective as conventional CPR for cardiac arrests that occur outside of a hospital. Survival depends on immediately receiving CPR from someone nearby. How do you perform Hands-Only CPR? There are two easy steps: Call if you see a teen or adult collapse Push hard and fast in the center of the chest at a beat of 100 beats per minute. Save a life! 4 WAYS TO GET AHEAD OF SEPSIS SEPSIS is a MEDICAL EMERGENCY. Time matters! Infections put you and your family at risk for a life-threatening condition called sepsis. Sepsis is the body's extreme response to an infection. It is life-threatening, and without timely treatment, sepsis can rapidly lead to tissue damage, organ failure, and . Sepsis happens when an infection you already have-in your skin, lungs, urinary tract or somewhere else-triggers a chain reaction throughout your body. 1 PREVENT INFECTIONS Take good care of chronic conditions. Talk to your doctor about getting the recommended vaccines. 2 PRACTICE GOOD HYGIENE Wash your hands frequently. Keep cuts or open sores clean and covered until they are healed. 3 KNOW THE SYMPTOMS Confusion or disorientation Shortness of breath High heart rate Fever, shivering, or feeling very cold Extreme pain or discomfort Clammy or sweaty skin 4 ACT FAST Get medical care IMMEDIATELY if you suspect sepsis or if you have an infection that is not getting better or is getting worse. To learn more about sepsis and how to prevent infections, visit www.cdc.gov/sepsis. Patient Portal Reminder: Be sure to sign up for the [facility] patient portal, which gives you 22/01 access to your medical information ??? including these discharge instructions ??? using your computer, smartphone, or tablet. Just go to [employer] to get started. Questions? Call . Test Results Laboratory or Other Results This Visit (last charted value for your 11/07/2018 visit) Hematology 11/07/18 12:49:00 Platelet Count: 222 K/uL -- Normal range between ( 163 and 369 ) Coagulation 11/07/18 17:48:00 ACT POC: 345 Second(s) -- Normal range between ( 74 and 137 ) Lipid Studies 11/07/18 17:21:00 Cholesterol Tot: 128 mg/dL -- Normal range between ( 0 and 199 ) Cholesterol HDL: 37.0 mg/dL Cholesterol LDL Calculation: 54.4 mg/dL -- Normal range between ( 0.0 and 99.0 ) Cholesterol VLDL Calculation: 36.6 mg/dL -- Normal range between ( 5.0 and 40.0 ) Cholesterol/HDL Ratio: 3.5 -- Normal range between ( 0.0 and 3.2 ) Triglyceride: 183 mg/dL -- Normal range between ( 0 and 249 ) LDL/HDL Ratio: 1.5 -- Normal range between ( 0.0 and 3.6 ) Patient Name:AWA CLAROS I have received and understand this information and was given the opportunity to ask questions. Patient/Pottery Kiln Builder Name: Patient/Pottery Kiln Builder Signature: Relationship to Patient: Clinician/Hospital Pottery Kiln Builder Signature: Date: documented in this encounter Plan of Treatment Not on file documented as of this encounter Visit Diagnoses Not on filedocumented in this encounter Care Teams Literacy Specialist Relationship Specialty Start Date End Date [facility], Find-A-Doc [facility] Find-a-Doc JOSH OBRIEN [id number] PCP - General 08/17/24 documented as of this encounter
--- OUTSIDE RECORDS SUMMARY | 2025-02-25 13:29 | XMS_ITS | Encounter Summary ---
Author Organization [employer] ([place], [place], [place], [place]) Address [address] [place] [address] Care Team Providers Care Slurry Plant Operator Name Role Phone [facility], Find-A-Doc Primary Care Provider Encounter Details Date Type Department Care Team (Late st Contact Info) Description 11/07/2018 Transcribed Document [facility] [place] Family Medicine [address] [place] [address] ProviderNicolette MD [address] [place] [address] Social History Tobacco Use Types Packs/Day Years Used Date Smoking Tobacco: Never Assessed Sex and Gender Information Value Date Recorded Sex Assigned at Male 11/29/2023 7:55 AM CDT Legal Sex Male 6:33 PM CDT Gender Identity Male 11/29/2023 7:55 AM CDT Sexual Orientation Not on file documented as of this encounter Miscellaneous Notes * Cerner Conversion Note - Nicolette Venegas MD - 11/07/2018 9:16 PM CDT Event Note Entered On: 11/07/2018 21:16 EDT Performed On: 11/07/2018 21:16 EDT by MARIO GARCIA RN Event Note Event Date/Time : 11/07/2018 20:45 EDT Description of Event : Up ambulating in the vaughan and to the bathroom. Tolerated well. No complaints. MARIO GARCIA, TWILA - 11/07/2018 21:16 EDT documented in this encounter Plan of Treatment Not on file documented as of this encounter Visit Diagnoses Not on filedocumented in this encounter Care Teams Slurry Plant Operator Relationship Specialty Start Date End Date [facility], Find-A-Doc [facility] [place] [address] PCP - General 08/17/24 documented as of this encounter
--- OUTSIDE RECORDS SUMMARY | 2025-02-25 13:29 | XMS_ITS | Encounter Summary ---
Author Organization [employer] ([place], [place], [place], [place]) Address [address] [place] [address] Care Team Providers Care Limnologist Name Role Phone [facility] Connection, Find-A-Doc Primary Care Provider Encounter Details Date Type Department Care Team (Late st Contact Info) Description 11/07/2018 Transcribed Document [facility] [address] [place] [address] ProviderNicolette MD [address] [place], [place] [id number] Social History Tobacco Use Types Packs/Day Years Used Date Smoking Tobacco: Never Assessed Sex and Gender Information Value Date Recorded Sex Assigned at Male 11/29/2023 7:55 AM CDT Legal Sex Male 6:33 PM CDT Gender Identity Male 11/29/2023 7:55 AM CDT Sexual Orientation Not on file documented as of this encounter Miscellaneous Notes * Cerner Conversion Note - Nicolette Venegas MD - 11/07/2018 6:01 PM CDT DATE OF PROCEDURE: 11/07/2018 LEFT HEART CATH/PERCUTANEOUS INTERVENTION REPORT INDICATION: Exertional dyspnea equivalent angina, anterior-inferior ischemia by Lexiscan Myoview perfusion study. REFERRING PHYSICIANS: 1. Melissa Mcclelland MD 2. Dr. Brady Booth. PROCEDURE: Standard left heart catheterization. TECHNIQUE: A 5/6-Hungarian sheath placed in the right radial artery. 5 mg of verapamil and 3000 units of heparin were administered via the radial artery sheath. Shan catheter was advanced to the left ventricle where pressures were measured. JL 3.5 diagnostic catheter was used for selective angiography of left coronary artery and JR4 diagnostic catheter for selective angiography of the right coronary artery. Following the diagnostic catheterization, successful percutaneous intervention was performed to the LAD. No complications. HEMODYNAMICS: Left ventricle 140/10 mmHg. Aorta 140/80 mmHg. DIAGNOSES: 1. Severe single-vessel coronary artery disease due to in-stent restenosis of the proximal left anterior descending stent. 2. Continued patency of the circumflex artery and the right coronary artery stent. 3. Normal left ventricular filling pressure without gradient across the aortic valve. CORONARY ANATOMY: 1. Left main trunk: Angiographically normal. 2. LAD: Large caliber vessel, which gives rise to large caliber first diagonal branch, additional tiny diagonal branches before extending beyond the apex. There is severe 70% in-stent restenosis within the proximal LAD stents. Mild atherosclerosis in remaining portion of the LAD and diagonal branches. 3. Circumflex artery: Large caliber vessel, which gives rise to a small caliber high lateral branch, a large caliber lateral branch. There is continued patency of the mid circumflex artery stent. 4. Right coronary artery: Dominant vessel. Large caliber tortuous vessel, which gives rise to a large caliber posterior descending artery and large caliber posterolateral branch. There is an eccentric 40% narrowing present in the proximal right coronary artery. No visible stent could be seen in the right coronary artery, but the vessel is widely patent. 5. Left ventricle: Normal left ventricular filling pressure without gradient across the aortic valve. IMPRESSION: Angiographically, the patient has severe single-vessel coronary artery disease due to in-stent restenosis within the proximal LAD stent. Given his dyspnea equivalent angina like symptom, percutaneous intervention was performed. PERCUTANEOUS INTERVENTION: The left coronary artery was engaged using FL 3.5 guide-catheter. The LAD lesion was crossed using a Whisper wire. Angioplasty was initially performed using a 3.5 x 12 Emerge balloon with inflation to 18 atmospheres. A 3.5 x 10 AngioSculpt balloon was then used for postdilatation with inflation to 20 atmospheres. Less than 20% residual stenosis. No complications. Patient received additional intravenous heparin for a total dose of 80 units/kg. Patient also received 300 mg Plavix and 243 mg aspirin in the petroleum refinery laborer. The radial artery sheath was then removed and the access site successfully compressed using a TR band. Jaison Anton M.D. Dict: 11/07/2018 18:01:51 Trans: 11/08/2018 00:41:48 CC1: Jaison Anton M.D. CC2: Melissa Mcclelland MD CC3: Dr. Brady Booth Electronically signed by Josiane [facility] Conversion Motel Front Desk Clerk Cerner at 10/17/2022 2:51 PM CDT documented in this encounter Plan of Treatment Not on file documented as of this encounter Visit Diagnoses Not on filedocumented in this encounter Care Teams Limnologist Relationship Specialty Start Date End Date [facility] Dada, Find-A-Doc [facility] [place] [address] PCP - General 08/17/24 documented as of this encounter
--- OUTSIDE RECORDS SUMMARY | 2025-02-25 13:29 | XMS_ITS | Encounter Summary ---
Author Organization [employer] ([place], [place], [place], [place]) Address [address] [place] [address] Care Team Providers Care Cloth Boil Off Machine Operator Name Role Phone [facility]ada, Find-A-Doc Primary Care Provider Encounter Details Date Type Department Care Team (Late st Contact Info) Description 11/07/2018 Transcribed Document [facility] [place] Family Medicine [address] [place] [address] ProviderNicolette MD [address] [place] [address] Social History Tobacco Use Types Packs/Day Years Used Date Smoking Tobacco: Never Assessed Sex and Gender Information Value Date Recorded Sex Assigned at Male 11/29/2023 7:55 AM CDT Legal Sex Male 6:33 PM CDT Gender Identity Male 11/29/2023 7:55 AM CDT Sexual Orientation Not on file documented as of this encounter Miscellaneous Notes * Cerner Conversion Note - Nicolette Venegas MD - 11/07/2018 12:34 PM CDT Patient: AWA CLAROS Age: 63 years Sex: Male : 1955 Associated Diagnoses: None Author: GUERDA JOHNSON MD-CAR Basic Information PCP: Dr Booth Cardiology: Millie [facility] PH[facility] Chief Complaint dyspnea History of Present Illness This is a 63 year old male with a history of CAD, HTN, HLD, and ROYER. He was seen in office with complaints of progressively worsening dyspnea. The symptoms are similar to what he experienced prior to stent placement in 2010. He underwent a Lexiscan MPI that was abnormal suggesting inferior and possibly apical ischemia with EF 40%. He has been scheduled for elective cardiac cath. Review of Systems Constitutional: Negative except as documented in history of present illness. Eye: Negative except as documented in history of present illness. Ear/Nose/Mouth/Throat: Negative except as documented in history of present illness. Respiratory: Negative except as documented in history of present illness. Cardiovascular: Negative except as documented in history of present illness. Gastrointestinal: Negative except as documented in history of present illness. Genitourinary: Negative except as documented in history of present illness. Hematology/Lymphatics: Negative except as documented in history of present illness. Endocrine: Negative except as documented in history of present illness. Immunologic: Negative except as documented in history of present illness. Musculoskeletal: Negative except as documented in history of present illness. Integumentary: Negative except as documented in history of present illness. Neurologic: Negative except as documented in history of present illness. Psychiatric: Negative except as documented in history of present illness. Health Status No qualifying data available No qualifying data available Allergies: No active allergies have been recorded. Current medications: (Selected) Problem list: No problem items selected or recorded. Histories No education data available. Social & Psychosocial Habits No Data Available Past Medical History: Active CAD - Coronary artery disease (8029380607) HLD - Hyperlipidemia (425278115) HTN - Hypertension (8362628640) ROYER - Obstructive sleep apnea (1962413300) Family History: Entire family history is negative. Procedure history: No active procedure history items have been selected or recorded. Physical Examination VS/Measurements No qualifying data available General: Alert and oriented. Eye: Pupils are equal, round and reactive to light. HENT: Normocephalic. Neck: Supple, No carotid bruit, No jugular venous distention. Respiratory: Lungs are clear to auscultation, Respirations are non-labored, Breath sounds are equal. Cardiovascular: Normal rate, Regular rhythm, No murmur, No gallop, Good pulses equal in all extremities. Gastrointestinal: Soft, Non-tender, Non-distended, Normal bowel sounds. Musculoskeletal: Normal range of motion, Normal strength. Integumentary: Warm, Dry, [place]. Neurologic: Alert, Oriented. Psychiatric: Cooperative. Review / Management No qualifying data available Cardiac Markers (Current Encounter/Past 24 Hours) No Cardiac Marker Results Found (Past 24 Hours) Blood Gases (Current Encounter/Past 24 Hours) No Blood Gas Results Found (Past 24 Hours) No Radiology Results Found Results review: No qualifying data available. Impression and Plan IMPRESSION: * progressively worsening FC II dyspnea equivalent angina. Abnormal Lexiscan MPI suggesting inferior and possibly apical ischemia with EF 40%. * CAD-BMS to Lcx in 2005, BMS to LAD 2001, BMS to RCA in 2010 * HTN-Inadequate control. * HLD * Obesity w/ ROYER. On CPAP. PLAN; Cardiac cath with possible catheter based intervention. Risks, benefits, and alternative therapy discussed in detail. He has given verbal and written consent. Increase Amlodipine to 10 mg daily. Continue other current CV meds. Emphasized wt loss, Na restriction. Minimize NSAIDS. DC Niaspan. Check lipid panel, if TG > 200, will start Vascepa 2 gram BID. Electronically signed by Interface, [facility] Conversion Cloth Shearer Cerner at 10/17/2022 2:58 PM CDT documented in this encounter Plan of Treatment Not on file documented as of this encounter Visit Diagnoses Not on filedocumented in this encounter Care Teams Cloth Boil Off Machine Operator Relationship Specialty Start Date End Date [facility] Connection, Find-A-Doc [facility] [place] [address] PCP - General 08/17/24 documented as of this encounter
--- OUTSIDE RECORDS SUMMARY | 2025-02-25 13:29 | XMS_ITS | Encounter Summary ---
Author Organization [employer] ([place], [place], [place], [place]) Address [address] [place] [address] Care Team Providers Care Industrial Pharmacist Name Role Phone [facility]ada, Find-A-Doc Primary Care Provider Encounter Details Date Type Department Care Team (Late st Contact Info) Description 11/07/2018 Transcribed Document [facility] [place] [address] [place] [address] ProviderNicolette MD [address] [place] [address] Social History Tobacco Use Types Packs/Day Years Used Date Smoking Tobacco: Never Assessed Sex and Gender Information Value Date Recorded Sex Assigned at Male 11/29/2023 7:55 AM CDT Legal Sex Male 6:33 PM CDT Gender Identity Male 11/29/2023 7:55 AM CDT Sexual Orientation Not on file documented as of this encounter Miscellaneous Notes * Cerner Conversion Note - Nicolette Venegas MD - 11/07/2018 7:55 PM CDT Patient Education Materials Follows: Moderate Conscious Sedation, Adult, Care After These [...] you are awake and alert. ??? Take lrfj-xjw-[id number] and prescription medicines only as told by [...] 04/08/2014 Document Revised: 11/20/2016 Document Reviewed: 10/07/2016 [employer] Interactive Patient Education ? 2017 [employer] Pulmonary Medicine Radial Site Care Introduction Refer to this [...] the radial site that usually fades within 1?2 weeks. ??? Blood collecting in the tissue (hematoma) that may be painful to the touch. It should usually decrease in size and tenderness within 1?2 weeks. Follow these instructions at home: ??? Take medicines only as directed by your health care provider. ??? You may shower 24?48 hours after the procedure or as directed [...] health care provider when it is okay to:? Return to work or school. ? Resume [...] 07/21/2011 Document Revised: 11/23/2016 Document Reviewed: 01/04/2015 ? 2017 [employer] Radiology Coronary Angiogram A coronary angiogram is an [...] including vitamins, herbs, eye drops, creams, and leel-mms-pxxmoky medicines. ??? Any problems you or family [...] Up to 2 hours before the procedure ? you may continue to drink clear liquids, such as water, clear fruit juice, black coffee, and plain tea. Eating and drinking restrictionsFollow instructions from your health care provider about eating and drinking, which may include: ??? 8 hours before the procedure ? stop eating heavy meals or foods such as meat, fried foods, or fatty foods. ??? 6 hours before the procedure ? stop eating light meals or foods, such as toast or cereal. ??? 2 hours before the procedure ? stop drinking clear liquids. General instructions ??? [...] 12/23/2003 Document Revised: 03/30/2017 Document Reviewed: 03/30/2017 [employer] Interactive Patient Education ? 2017 [employer] documented in this encounter Plan of Treatment Not on file documented as of this encounter Visit Diagnoses Not on filedocumented in this encounter Care Teams Industrial Pharmacist Relationship Specialty Start Date End Date [facility] Connection, Find-A-Doc [facility] [place] [address] PCP - General 08/17/24 documented as of this encounter
--- OUTSIDE RECORDS SUMMARY | 2025-02-25 13:29 | XMS_ITS | Encounter Summary ---
Author Organization [employer] ([place], [place], [place], [place]) Address [address] [place] [address] Care Team Providers Care Coil Winder Hand Name Role Phone [facility], Find-A-Doc Primary Care Provider Encounter Details Date Type Department Care Team (Late st Contact Info) Description 11/07/2018 Transcribed Document [facility] [place] [address] [place] [address] ProviderNicolette MD [address] [place] [address] Social History Tobacco Use Types Packs/Day Years Used Date Smoking Tobacco: Never Assessed Sex and Gender Information Value Date Recorded Sex Assigned at Male 11/29/2023 7:55 AM CDT Legal Sex Male 6:33 PM CDT Gender Identity Male 11/29/2023 7:55 AM CDT Sexual Orientation Not on file documented as of this encounter Miscellaneous Notes * Cerner Conversion Note - Nicolette Venegas MD - 11/07/2018 8:31 PM CDT Nursing Discharge Summary Entered On: 11/07/2018 20:32 EDT Performed On: 11/07/2018 20:31 EDT by MARIO GARCIA RN Discharge Documentation Discharge Date/Time : 11/07/2018 21:00 EDT Patient Disposition, General : Discharge Discharge To : Home with ambulatory/outpatient follow-up Mode Of Departure, General Discharge : Ambulatory, Private vehicle Accompanied By, Discharge : Spouse IV Discontinued : Yes Personal Belongings With Patient : Yes Prescriptions Given to Patient : Yes Discharge Instructions Reviewed With, Opportunity For Questions Given : Patient, Spouse Patient Education Completed : Yes Teaching Method : Explanation, Printed materials Teaching Evaluation : Returns demonstration, Verbalizes understanding MARIO GARCIA, RN - 11/07/2018 20:31 EDT documented in this encounter Plan of Treatment Not on file documented as of this encounter Visit Diagnoses Not on filedocumented in this encounter Care Teams Coil Winder Hand Relationship Specialty Start Date End Date [facility] Connection, Find-A-Doc [facility] Find-a-Doc [place] [id number] PCP - General 08/17/24 documented as of this encounter
--- OUTSIDE RECORDS SUMMARY | 2025-02-25 13:29 | XMS_ITS | Encounter Summary ---
Author Organization [employer] ([place], [place], [place], [place]) Address [address] [place] [address] Care Team Providers Care Raw Products Director Name Role Phone [facility] Dada, Find-A-Doc Primary Care Provider Encounter Details Date Type Department Care Team (Late st Contact Info) Description 11/07/2018 Transcribed Document [facility] [place] Family Medicine [address] [place] [address] ProviderNicolette MD [address] [place], [place] [address] Social History Tobacco Use Types Packs/Day Years Used Date Smoking Tobacco: Never Assessed Sex and Gender Information Value Date Recorded Sex Assigned at Male 11/29/2023 7:55 AM CDT Legal Sex Male 6:33 PM CDT Gender Identity Male 11/29/2023 7:55 AM CDT Sexual Orientation Not on file documented as of this encounter Miscellaneous Notes * Cerner Conversion Note - Nicolette Venegas MD - 11/07/2018 1:04 PM CDT Pre Procedure Adult Entered On: 11/07/2018 13:09 EDT Performed On: 11/07/2018 13:04 EDT by MARIO GARCIA RN Height and Weight, Clinical Dosing Height Source : Stated Height Entry Format : [place] Height, Feet : 5 ft(Converted to: 152 cm, 60 Inch) Height, Inches : 6 Inch(Converted to: 0 ft 6 Inch, 15.24 cm) Clinical Height : 167.64 cm Weight Source : Standing scale Weight Entry Format : [place]rie Clinical Dosing Weight : 102.27 kg Weight, Pounds : 225 lb Body Surface Area (BSA) : 2.1 m2 Body Mass Index : 36.4 kg/m2 (HI) [place] Body Weight : 63 kg MARIO GARCIA RN - 11/07/2018 13:04 EDT Health Histories Smoking Status : Former smoker, quit more than 30 days ago Smokeless Tobacco Status : Former smokeless tobacco user, quit more than 30 days ago MARIO GARCIA RN - 11/07/2018 13:04 EDT Social History (As Of: 11/07/2018 13:09:30 EDT) Alcohol: Days/Week: 3. # Drinks/Day: 2. Total Drinks/Week: 6. (Last Updated: 11/07/2018 13:06:08 EDT by MARIO GARCIA RN) Infectious Disease History Infectious Disease History : Chicken pox/Shingles, Influenza, Measles, Mumps Fever/Chills Last 48 Hours : No Travel To Regions with Travel Advisories : No Travel Outside [place] Within Last 30 Days : No Contact With Traveler to Advisory Region : No Tuberculosis Symptoms : None MARIO GARCIA RN - 11/07/2018 13:04 EDT Anesthesia/Transfusion History Family History of Anesthesia Reaction : No prior transfusion(s) Transfusion History : Prior anesthesia without reaction Family History of Anesthesia Reaction : None MARIO GARCIA RN - 11/07/2018 13:04 EDT Functional Assessment Living Situation : Home Current Home Treatments : CPAP MARIO GARCIA RN - 11/07/2018 13:04 EDT Psychosocial History Currently in Unsafe Situation : No Tried to Harm Yourself in the Past? : No Thoughts of Harming/Killing Yourself : No MARIO GARCIA RN - 11/07/2018 13:04 EDT Advance Directive Patient has Advance Directive *Q : No, patient refuses Advance Directive information MARIO GARCIA RN - 11/07/2018 13:04 EDT General Info Support Person/Pt Rep Name : Nisha [phone] Want Family/Rep/Phys Notified of Admit : No Emergency Contact #1 : na Emergency Contact #1 Phone Number : na Emergency Contact #1 Relationship : na Emergency Contact #2 : na Emergency Contact #2 Phone Number : na Emergency Contact #2 Relationship : na Primary Language : Ecuadorean Communication Barrier : None MARIO GARCIA RN - 11/07/2018 13:04 EDT Sleep Apnea Risk Assmt BiPAP/CPAP Ordered for Home Use : Yes Hx of Obstructive Sleep Apnea Diagnosis : Yes BiPAP/CPAP Used at Home : Yes Age over 50 Years Old : Yes Gender Male : Yes MARIO GARCIA RN - 11/07/2018 13:04 EDT Travon Scale Travon Sensory Perception : No impairment Travon Moisture : Rarely moist Travon Activity : Walks frequently Travon Mobility : No limitation Travon Nutrition : Excellent Travon Friction and Shear : No apparent problem Travon Score : 23 MARIO GARCIA RN - 11/07/2018 13:04 EDT Fall Risk Scales ABCs Fall Injury Risk Identification : None BAÑUELOS Hx Falls Immediate/Within 3 Months : No Bañuelos Secondary Diagnosis : No BAÑUELOS Use of Ambulatory Aid : None BAÑUELOS IV Therapy or IV Access : No Bañuelos Gait/Transferring : Normal, bedrest, immobile Bañuelos Mental Status : Oriented to own ability Bañuelos Fall Risk Score : 0 BAÑUELOS Fall Scale Risk Level : 0-24 Low Risk Melbeta Fall Interventions : Bed in low position, Wheels locked MARIO GARCIA RN - 11/07/2018 13:04 EDT Valuables and Belongings Valuables and Belongings : Clothing Clothing : Common streetwear Clothing Disposition : Bedside MARIO GARCIA RN - 11/07/2018 13:04 EDT documented in this encounter Plan of Treatment Not on file documented as of this encounter Visit Diagnoses Not on filedocumented in this encounter Care Teams Raw Products Director Relationship Specialty Start Date End Date [facility] Connection, Find-A-Doc [facility] [place] [address] PCP - General 08/17/24 documented as of this encounter
--- OUTSIDE RECORDS SUMMARY | 2025-02-25 13:30 | XMS_ITS | Clinical Summary ---
Author Organization [employer] ([place], [place], [place], [place]) Address [address] [place] [address] Care Team Providers Care Talent Acquisition Administrator Name Role Phone [facility], Find-A-Doc Primary Care Provider Allergies No known active allergies Medications amLODIPine (NORVASC) 10 MG tablet Take 1 tablet (10 mg total) by mouth daily. 09/10/2023 Active clopidogreL (PLAVIX) 75 mg tablet Take 1 tablet (75 mg total) by mouth daily. 09/10/2023 Active diclofenac (VOLTAREN) 50 MG EC tablet Take 1 tablet (50 mg total) by mouth 2 (two) times daily. 08/13/2023 Active fenofibrate (LOFIBRA) 54 MG tablet Take 1 tablet (54 mg total) by mouth daily. 08/31/2023 Active fluticasone propionate (FLONASE) 50 mcg/actuation nasal spray 1 spray daily. 08/12/2023 Active losartan (COZAAR) 100 MG tablet Take 1 tablet (100 mg total) by mouth daily. 10/01/2023 Active metoprolol tartrate (LOPRESSOR) 100 MG tablet Take 1 tablet (100 mg total) by mouth 2 (two) times daily. 10/01/2023 Active omeprazole (PriLOSEC) 20 MG capsule Take 1 capsule (20 mg total) by mouth daily. 09/05/2023 Active simvastatin (ZOCOR) 40 MG tablet Take 1 tablet (40 mg total) by mouth nightly. 10/01/2023 Active traMADoL (ULTRAM) 50 mg tablet Take 1 tablet (50 mg total) by mouth every 6 (six) hours as needed. 08/24/2023 Active Active Problems Problem Noted Date Diagnosed Date ROYER (obstructive sleep apnea) 11/29/2023 Stented coronary artery 11/29/2023 Social History Tobacco Use Types Packs/Day Years Used Date Smoking Tobacco: Former Cigarettes Q uit: 1995 Smokeless Tobacco: Never Tobacco Cessation:Counseling Given: Not Answered Alcohol Use Standard Drinks/Week Comments Yes 0 (1 standard drink = 0.6 oz pur e alcohol) 1 shot per night Employment Answer Date Recorded Help finding and keeping a job Not on file 0 11/01/2023 Family and Community Support Answer Asad e Recorded Help with Day to Day Activities Not on file 11/01/2023 Feeling Lonely or Isolated Not on file 10/31 Educational Attainment Answer Date Tone rded Speak language other than Kyrgyz at home Not on file 11/01/2023 Want help with school or training Not on file 11/01/2023 Substance Use Answer Date Recorded Used prescription meds for non-medical reasons N ot on file 11/01/2023 Used illegal drugs past 12 months Not on file 11/01/2023 Sex and Gender Information Value Date Recorded Sex Assigned at Male 11/29/2023 7:55 AM CDT Legal Sex Male 6:33 PM CDT Gender Identity Male 11/29/2023 7:55 AM CDT Sexual Orientation Not on file Last Filed Vital Signs Vital Sign Reading Time Taken Comments Blood Pressure 135/70 08/17/2024 1:18 PM EST Pulse 76 08/17/2024 1:18 PM EST Temperature 36.7 C (98.1 F) 08/17/2024 1:18 PM EST Respiratory Rate 16 08/17/2024 1:18 PM EST Oxygen Saturation 95% 08/17/2024 1:18 PM EST Inhaled Oxygen Concentration - - Weight 106.6 kg (235 lb) 08/17/2024 11:39 AM EST Height 167.6 cm (5' 6 ) 08/17/2024 11:39 AM EST Body Mass Index 37.93 08/17/2024 11:39 AM EST Plan of Treatment Health Maintenance Due Date Last Done Comments CT Colonography 1954 Colonoscopy 1954 Colorectal Cancer Screening 1954 FOBT/FIT 1954 Fit-DNA (Cologuard) 1954 Sigmoidoscopy 1954 Depression Screening (12+) 1966 Hepatitis C Screening 1972 Shingles Vaccine (Zoster) (2 of 2) 05/01/20162015 Medicare Initial AWV [id number] 10/01/2018 COVID-19 VACCINE (8 - 2023-2 5 season) 2024 04/11/2022, 01/24/2022, 04/29/2021, Additional history exists Falls Risk Screening 07/02/2024 Tobacco Cessation Counseling and Screening (12+) 11/28/2024 11/29/2023 Influenza Vaccine (#1) 2025 3, 05/11/2022, 04/27/2020 Respiratory Syncytial Virus (RSV) Adult or (1 - 1-dose 75+ series) 2029 DTAP/TDAP/TD VACCINES (3 - T d or Tdap) 08/20/2033 08/20/2023, 08/06/2015 Pneumococcal 50+ years Completed 4, 09/17/2018, 02/08/2014 Medical Devices Implanted Type Area Recording Studio Intern Device Identifier Shelf Expiration Date Model / Serial / Lot Iol Uv Clareon +20.5 [id number] - [id number] Implanted:Qty: 1 on 11/01/2023 by Shiloh Baker MD at [facility] IMPLANTS Left: Eye STACEY 03/11/2027 [id number] / [id number] / Iol Uv Clareon +20.5 [id number] - [id number] Implanted:Qty: 1 on 11/29/2023 by Shiloh Baker MD at [facility] IMPLANTS Right: Eye STACEY 03/11/2027 [id number] / [id number] / Insurance MEDICARE PART A B FOR LIFE Care Teams Talent Acquisition Administrator Relationship Specialty Start Date End Date [facility], Find[facility]A-Doc [facility] [place] [address] PCP - General 08/17/24
--- OUTSIDE RECORDS SUMMARY | 2025-02-25 13:30 | XMS_ITS | Clinical Summary ---
Author Organization [facility] Address [address] [place] [address] Care Team Providers Care Activities Aide Name Role Phone Maycol Burkett MD Primary Care Provider [phone] Allergies Active Allergy Reactions Criticality Noted Date Comments Lisinopril Rash Low 08/28/2023 Medications diclofenac (VOLTAREN) 50 MG EC tablet 09/15/2022 Active fluticasone (FLONASE) 50 MCG/ACT nasal spray 09/15/2022 Active lidocaine (LIDODERM) 5 % 09/15/2022 Acti ve omeprazole (priLOSEC) 20 MG capsule 09/15/2022 Active traMADol (ULTRAM) 50 MG tablet 08/03/2022 Active EPINEPHrine (EPIPEN) 0.3 MG/0.3ML solution auto-injector injection 03/08/2023 Active Eliquis 2.5 MG tablet tablet Take 1 tablet by mouth Every 12 (Twelve) Hours. 08/09/2024 Active cyclobenzaprine (FLEXERIL) 10 MG tablet 09/08/2024 Active oxyCODONE-aceta minophen (PERCOCET) 5-325 MG per tablet 09/08/2024 Active Probiotic Product (PROBIOTIC DAILY PO) Take 1 tablet by mouth Daily. Active docusate sodium (COLACE) 100 MG capsule Take 1 capsule by mouth 2 (Two) Times a Day. Active cefTRIAXone Sodium (ROCEPHIN IV) Infuse into a venous catheter Daily. 2 gramds IV daily Active vancomycin 1500 mg/250ml solution IVPB Infuse 250 mL into a venous catheter Daily. Active clopidogrel (PLAVIX) 75 MG tabletIndicatio ns:Stented coronary artery Take one tablet daily ONCE ortho stops your Eliquis. 90 tablet 3 09/09/2024 Active amLODIPine (NORVASC) 10 MG tabletIndicatio ns:Stented coronary artery Take 1 tablet by mouth Daily. 90 tablet 3 09/09/2024 Active fenofibrate (TRICOR) 54 MG tabletIndicatio ns:Stented coronary artery Take 1 tablet by mouth Daily. 90 tablet 1 09/09/2024 Active losartan (COZAAR) 100 MG tabletIndicatio ns:Stented coronary artery Take 1 tablet by mouth Daily. 90 tablet 3 09/09/2024 Active metoprolol tartrate (LOPRESSOR) 100 MG tabletIndicatio ns:Stented coronary artery Take 1 tablet by mouth 2 (Two) Times a Day. 180 tablet 3 09/09/2024 Active simvastatin (ZOCOR) 40 MG tabletIndicatio ns:Stented coronary artery Take 1 tablet by mouth Every Night. 90 tablet 3 09/09/2024 Active Active Problems Problem Noted Date Diagnosed Date Weight loss, unintentional 09/09/2024 Assessment & Plan (09/09/2024 2:25 PM EDT): No appetite and upset stomach with oral and IV ABX. Preop cardiovascular exam 02/06/2024 ROYER (obstructive sleep apnea) 11/29/2023 Overview (02/05/2024): History of ROYER with an AHI of 62 on PSG 10/25/2004. Assessment & Plan (09/09/2024 2:23 PM EDT): Benefiting from pap therapy. Plan to continue. Stented coronary artery 11/29/2023 Assessment & Plan (09/09/2024 2:25 PM EDT): Post op Ortho started him on Eliquis Have reached out to ortho to see for how long Will need to restart ASA and Plavix once post op Eliquis is stopped Avoid restarting now r/t blood transfusion post op within last month half-way (current) use of anticoagulants 2023 Essential hypertension 10/25/2022 Abnormal echocardiogram 10/25/2022 Overview (10/25/2022): August 24, 2021 echo EF 45 to 50%. Mildly dilated left ventricle. Moderate concentric left ventricular hypertrophy. Mildly dilated left atrium. Mild aorti Nonrheumatic mitral valve regurgitation 10/26/19 Overview (09/09/2024): 02/05/2024 echo-EF 59%, left atrial volume moderately increased. Aortic valve abnormal in structure and exhibits sclerosis. No regurgitation or stenosis present. August 24, 2021 echo EF 45 to 50%. Mildly dilated left ventricle. Moderate concentric left ventricular hypertrophy. Mildly dilated left atrium. Mild aortic valve sclerosis without stenosis. Mild to moderate MR. Assessment & Plan (09/09/2024 2:22 PM EDT): 02/05/2024 echo-EF 59%, left atrial volume moderately increased. Aortic valve abnormal in structure and exhibits sclerosis. No regurgitation or stenosis present. -Recheck every 12-24 months Coronary artery disease Overview (10/25/2022): November 07, 2018 left heart cath. LAD with severe 70% in stent restenosis within the proximal LAD stents. RCA with eccentric 40% narrowing present in the proximal RCA. Balloon inserted into LAD. On beta-diaz, statin, Plavix. Medically stable. GERD (gastroesophageal reflux disease) Hyperlipidemia Morbid obesity with BMI of 40.0-44.9, adult Nonsmoker Mild aortic valve sclerosis Overview (09/09/2024): 02/05/2024 echo-EF 59%, left atrial volume moderately increased. Aortic valve abnormal in structure and exhibits sclerosis. No regurgitation or stenosis present. August 24, 2021 echo EF 45 to 50%. Mildly dilated left ventricle. Moderate concentric left ventricular hypertrophy. Mildly dilated left atrium. Mild aortic valve sclerosis without stenosis. Mild to moderate MR. Assessment & Plan (09/09/2024 2:21 PM EDT): 02/05/2024 echo-EF 59%, left atrial volume moderately increased. Aortic valve abnormal in structure and exhibits sclerosis. No regurgitation or stenosis present. -Recheck every 12-18 months Immunizations Immunization Administration Dates Next Due ABRYSVO (RSV, 60+ or women 32-36 wks) 0 03/13/2023 COVID-19 (MODERNA) 12YRS+ (SPIKEVAX) 04/09/2023 Covid-19 (Pfizer) Park Cap Monovalent 09/23/2020 ,09/02/2020 Fluzone High-Dose 65+YRS 04/27/2020 Fluzone High-Dose 65+yrs 04/09/2023,05/11/2022 Hepatitis A 02/12/2019,05/01/2018 Pneumococcal Conjugate 20-Valent (PCV20) 024 Pneumococcal Polysaccharide (PPSV23) 09/17/2018 Tdap 08/20/2023 Family History Relation Name Status Comments Brother 1 Alive Father Maternal Aunt Other Mother Alive Sister 1 Alive Social History Tobacco Use Types Packs/Day Years Used Date Smoking Tobacco: Never Passive Smoke Exposure: Never Smokeless Tobacco: Never Tobacco Cessation:Counseling Given: No Alcohol Use Standard Drinks/Week Comments Never 0 (1 standard drink = 0.6 oz pur e alcohol) Sex and Gender Information Value Date Recorded Sex Assigned at Not on file Legal Sex Male 11:57 AM EDT Gender Identity Not on file Sexual Orientation Not on file Last Filed Vital Signs Vital Sign Reading Time Taken Comments Blood Pressure 118/78 09/09/2024 1:17 PM EDT Pulse 73 09/09/2024 1:17 PM EDT Temperature - - Respiratory Rate - - Oxygen Saturation 97% 09/09/2024 1:17 PM EDT Inhaled Oxygen Concentration - - Weight 110 kg (242 lb) 09/09/2024 1:17 PM EDT Height 172.7 cm (5' 8 ) 09/09/2024 1:17 PM EDT Body Mass Index 36.8 09/09/2024 1:17 PM EDT Plan of Treatment Upcoming Encounters Date Type Department Care Team (Late st Contact Info) Description 03/10/2025 11:30 AM EDT Office Visit [facility] [address] [place] [phone] Shelley Rae APRN [address] [place] [address] Health Maintenance Due Date Last Done Comments LIPID PANEL 1954 COLOGUARD 1999 COLON CANCER SCREENING 5 YEA R SIGMOIDOSCOPY 1999 COLONOSCOPY 1999 COL[address] CANCER SCREENING 1999 CT COLONOGRAPHY 1999 FECAL OCCULT BLOOD TEST 1999 FIT Testing (1 year) 1999 ZOSTER VACCINE (1 of 2) 2004 ANNUAL WELLNESS VISIT 10/25/2022 HEPATITIS C SCREENING 10/25/2022 COVID-19 Vaccine (8 2023-2 5 season) 2024 06/12/2024, 12/04/2023, 04/09/2023, Additional history exists INFLUENZA VACCINE 04/01/2025 06/12/2024, , 05/11/2022, Additional history exists TDAP/TD VACCINES (2 - Td or Tdap) 08/20/2033 024 Pneumococcal Vaccine 50+ Completed 08/20/2023, 08/30 Insurance MEDICARE A & B Care Teams Activities Aide Relationship Specialty Start Date End Date Maycol Burkett MD [address] [place] [facility] [address] [place] [address] PCP - General Family Medicine 01/31/24
--- OUTSIDE RECORDS SUMMARY | 2025-02-25 13:30 | XMS_ITS | Referral Summary ---
Author Organization [employer] ([place], [place], [place], [place]) Address [address] [place] [address] Care Team Providers Care Health Safety Manager Name Role Phone [facility], Find-A-Doc Primary Care Provider Allergies No [...] Date Tone rded Speak language other than Wolof at home Not on file 11/01/2023 Want [...] 08/17/2024 11:39 AM EST Plan of Treatment Not on file Medical Devices Implanted Type Area Profiler Device Identifier Shelf Expiration Date Model / Serial / Lot Iol Uv [place]on +20.5 [id number] - [id number] Implanted:Qty: 1 on 11/01/2023 by Shiloh Baker MD at [facility] IMPLANTS Left: Eye STACEY 03/11/2027 [id number] / [id number] / Iol Uv Clareon +20.5 [id number] - [id number] Implanted:Qty: 1 on 11/29/2023 by Shiloh Baker MD at [facility] IMPLANTS Right: Eye STACEY 03/11/2027 [id number] / [id number] / Insurance MEDICARE PART A B Care Teams Health Safety Manager Relationship Specialty Start Date End Date [facility] Connection, Find-A-Doc [facility] [place] [address] PCP - General 08/17/24
--- NOTE | 2025-02-25 14:00 | CT_ITS ---
FINAL REPORT TECHNIQUE: Thin section axial images from the thoracic inlet through the upper abdomen were performed without contrast. Coronal reformatted images were performed and reviewed. The study was performed with techniques to keep radiation doses as low as reasonably available, (ALARA) individualized radiation reduction techniques using automated exposure control or adjustment of mA and/or kV according to the patient's size was employed. CLINICAL HISTORY: lung nodule COMPARISON: None FINDINGS: The thoracic inlet is unremarkable. There are vascular calcifications of the aorta with no aneurysm. There is multivessel coronary artery calcification. The heart is normal in size. There is a 1 cm right peritracheal lymph node. There is no other adenopathy. There is evidence of old calcified granulomatous disease. There are pleural effusions. Limited imaging of the upper abdomen demonstrate a few liver hypodensities which may represent cysts. There is high density layering in the gallbladder suggesting sludge or tiny stones. There is diffuse bronchial thickening. There is moderate centrilobular emphysema. There is lingular and left base atelectasis or scarring. No noncalcified pulmonary nodules are identified. IMPRESSION: No pulmonary nodules evident. Bronchial thickening. Reviewed, Interpreted and Dictated by Jeramy Young MD Transcribed by Melissa Carcamo Authenticated and [facility]
== END 2025-02-25 23:59 | disposition home or self-care (01) ==
LOC: RAD 13:26
PROVIDERS: PCP Family Medicine; Visit Provider Family Medicine
DX: R91.1 Solitary pulmonary nodule (principal); J43.2 Centrilobular emphysema; R91.8 Other nonspecific abnormal finding of lung field; I10 Essential (primary) hypertension; G47.33 Obstructive sleep apnea (adult) (pediatric)
CPT/HCPCS: 71250